=== PATIENT | male | born 1935 | race Caucasian/White ===

== ENCOUNTER → 2019-12-16 | Outpatient (CLI) | payer MEDICARE ==
--- NOTE | 2019-12-16 13:09 | XR ---
EXAMINATION TYPE: XR chest 2V DATE OF EXAM: 12/16/2019 COMPARISON: NONE HISTORY: Shortness of breath TECHNIQUE: Frontal and lateral views of the chest are obtained. FINDINGS: Scattered senescent parenchymal changes noted. Hyperinflation compatible with COPD. No evidence for infiltrate. No evidence for atelectasis. Scattered granulomas noted. Heart size is enlarged. Mediastinal structures are stable and grossly unremarkable. No evidence for hilar prominence. Degenerative changes dorsal spine. IMPRESSION: 1. No evidence for acute pulmonary disease.
== END | disposition home or self-care (01) ==
LOC: RADXRMAIN 12:48
PROVIDERS: ATTEND Family Medicine
DX: R05 Cough (principal)
CPT/HCPCS: 71046

== ENCOUNTER → 2020-03-12 | Outpatient (CLI) | payer MEDICARE ==
[2020-03-12 19:15] LABS: T4, Free (Free Thyroxine) 0.9 ng/dL (0.80-1.80)
[2020-03-12 20:08] LABS: Protein, Total 7.1 g/dL (6.2-8.2)
[2020-03-12 21:31] LABS: Hemoglobin A1C 6.3 % (4.0-6.0)
[2020-03-15 15:28] LABS: Albumin 3.82 g/dL (3.80-4.90); Gamma Globulin 1.19 g/dL (0.70-1.50)
== END | disposition home or self-care (01) ==
LOC: LABWHC1 11:50
PROVIDERS: ATTEND Psychiatry & Neurology Neurology
DX: R73.9 Hyperglycemia, unspecified (principal); G62.9 Polyneuropathy, unspecified
CPT/HCPCS: 36415; 82607; 83036; 84165; 84439; 84443; 85652; 86038; 86618

== ENCOUNTER → 2021-05-09 | Outpatient (CLI) | payer MEDICARE ==
[2021-05-09 22:07] LABS: Protein, Total 6.8 g/dL (6.2-8.2)
[2021-05-09 22:20] LABS: T4, Free (Free Thyroxine) 0.8 ng/dL (0.80-1.80)
== END | disposition home or self-care (01) ==
LOC: LABWHC1 10:53
PROVIDERS: ATTEND Psychiatry & Neurology Pain Medicine
DX: R20.0 Anesthesia of skin (principal); R20.2 Paresthesia of skin
CPT/HCPCS: 36415; 82607; 83519; 84165; 84439; 84443

== ENCOUNTER → 2021-05-10 | Outpatient (CLI) | payer MEDICARE ==
--- NOTE | 2021-05-10 18:35 | US ---
EXAMINATION TYPE: US kidneys/renal and bladder DATE OF EXAM: 05/10/2021 COMPARISON: None CLINICAL HISTORY: 85-year-old male N39.0 Urinary tract infection. TECHNIQUE: Multiple sonographic images of the kidneys and bladder are obtained. FINDINGS: EXAM MEASUREMENTS: Right Kidney: 10.3 x 5.4 x 4.8 cm Left Kidney: 10.7 x 5.1 x 4.8 cm Right Kidney: No hydronephrosis. There are multiple cysts: Superior = 1.8x 1.5 x 1.3 cm Superior = 2.2 x 1.9 x 1.5 cm Inferior = 2.7 x 2.2 x 1.9 cm Left Kidney: No hydronephrosis or masses seen. Multiple cysts. Largest =1.3 x 1.2 x 1.0 cm Lower pole . Other cysts are subcentimeter in size. No hydronephrosis. Bladder: Mild circumferential wall thickening. Prostate gland appears prominent. Bilateral Jets seen: Yes Normal Post Void Residual: Yes Post Void Residual Volume: 16.0 mL. IMPRESSION: 1. No hydronephrosis. 2. Bilateral benign renal cysts measuring up to 2.7 cm, right greater than left. 3. Mild circumferential bladder wall thickening. Given the prominent prostate gland, correlate for ch ronic bladder wall hypertrophy. 4. Increased post void bladder volume of 16.0 mL falls within acceptable limits (normal 50 mL).
== END | disposition home or self-care (01) ==
LOC: RADUSWWP 15:01
PROVIDERS: ATTEND Urology
DX: N28.1 Cyst of kidney, acquired (principal); N32.89 Other specified disorders of bladder
CPT/HCPCS: 76770

== ENCOUNTER 2021-07-08 14:18 | Inpatient (IN) | payer MEDICARE ==
--- NOTE | 2021-07-08 15:23 | ED ---
General Adult HPI - General Chief complaint: Recheck/Abnormal Lab/Rx Stated complaint: High Blood Pressure Time Seen by Provider: 07/08/21 15:07 Source: patient, RN notes reviewed Mode of arrival: ambulatory Limitations: no limitations - History of Present Illness Initial comments: 85-year-old male with a past medical history of hypertension presents to the emergency room for a chief complaint of hypertension. Patient states that last week he went to neurology and spine given his spinal tap done to evaluate for neuropathy and leg weakness. States that at that time the blood pressure was high. Patient states they've been monitoring at home and has continued to be high. States he used to be on blood pressure medication but has not taken this for the past 2 years because it seemed to resolve. Patient's only symptoms are feeling somewhat weak for the past week or so. No chest pain, syncope. Patient has no other complaints at this time including shortness of breath, chest pain, abdominal pain, nausea or vomiting, headache, or visual changes. - Related Data Home Medications Medication Instructions Recorded Confirmed Apixaban [Eliquis] 5 mg PO BID 07/08/21 07/08/21 Cholecalciferol [Vitamin D3 (25 25 mcg PO DAILY 07/08/21 07/08/21 Mcg = 1000 Iu)] DULoxetine HCL [Cymbalta] See Taper PO DIRECTED 07/08/21 07/08/21 gemfibroziL [Lopid] 600 mg PO BID 07/08/21 07/08/21 Allergies Allergy/AdvReac Type Severity Reaction Status Date / Time No Known Allergies Allergy Verified 07/08/21 17:14 Review of Systems ROS Statement: Those systems with pertinent positive or pertinent negative responses have been documented in the HPI. ROS Other: All systems not noted in ROS Statement are negative. Past Medical History Past Medical History: Hypertension Additional Past Medical History / Comment(s): Neuropathy History of Any Multi-Drug Resistant Organisms: ESBL Date of last positivie culture/infection: 04/01/21 MDRO Source:: ESBL URINE Past Surgical History: No Surgical Hx Reported Smoking Status: Never smoker Past Alcohol Use History: Occasional Past Drug Use History: None Reported General Exam Limitations: no limitations General appearance: alert, in no apparent distress Head exam: Present: atraumatic Eye exam: Present: normal appearance, PERRL, EOMI. Absent: scleral icterus, conjunctival injection ENT exam: Present: normal exam, mucous membranes moist Neck exam: Present: normal inspection, full ROM. Absent: tenderness Respiratory exam: Present: normal lung sounds bilaterally. Absent: respiratory distress, wheezes Cardiovascular Exam: Present: bradycardia GI/Abdominal exam: Present: soft, normal bowel sounds. Absent: distended, tenderness Neurological exam: Present: alert Course Vital Signs 07/08/21 07/08/21 07/08/21 14:41 15:20 16:00 Temperature 97.6 F Pulse Rate 76 34 L 36 L Respiratory 18 14 18 Rate Blood Pressure 205/80 196/99 182/104 O2 Sat by Pulse 99 100 Oximetry 07/08/21 07/08/21 16:01 16:30 Temperature Pulse Rate 37 L 41 L Respiratory 18 18 Rate Blood Pressure 194/102 191/89 O2 Sat by Pulse 100 100 Oximetry EKG Findings - EKG Comments: EKG Findings:: Atrial fibrillation with slow ventricular response, ventricular rate 31, QTc 387, QRS duration 104 Medical Decision Making - Medical Decision Making Patient presents for hypertension. He is hypertensive however is found to be bradycardic. Heart rate in the mid-30s down to 31 at the lowest. He is generally asymptomatic. Only complaint is some weakness for the past week or so. CBC is unremarkable. CMP does show some increased creatinine and BUN. Patient will be given fluids. Troponin is negative. Chest x-ray shows mild cardiomegaly with some increased patchy interstitial changes in the lower lungs. He does not have cough or fever to correlate with atypical pneumonia. I did speak with Dr. Cai. He requests 25 mg of by mouth hydralazine be given as this could be reflexive bradycardia. Patient will be admitted with cardiology consultation. - Lab Data Result diagrams: 07/08/21 15:27 07/08/21 15:27 Lab Results 07/08/21 07/08/21 07/08/21 Range/Units 15:27 15:27 15:27 WBC 6.0 (3.8-10.6) k/uL RBC 4.20 L (4.30-5.90) m/uL Hgb 14.1 (13.0-17.5) gm/dL Hct 40.1 (39.0-53.0) % MCV 95.5 (80.0-100.0) fL MCH 33.5 (25.0-35.0) pg MCHC 35.1 (31.0-37.0) g/dL RDW 14.5 (11.5-15.5) % Plt Count 161 (150-450) k/uL MPV 9.1 Neutrophils % 60 % Lymphocytes % 25 % Monocytes % 8 % Eosinophils % 4 % Basophils % 0 % Neutrophils # 3.6 (1.3-7.7) k/uL Lymphocytes # 1.5 (1.0-4.8) k/uL Monocytes # 0.5 (0-1.0) k/uL Eosinophils # 0.2 (0-0.7) k/uL Basophils # 0.0 (0-0.2) k/uL PT 11.3 (9.0-12.0) sec INR 1.1 (<1.2) APTT 25.5 (22.0-30.0) sec Sodium 141 (137-145) mmol/L Potassium 4.6 (3.5-5.1) mmol/L Chloride 109 H (98-107) mmol/L Carbon Dioxide 24 (22-30) mmol/L Anion Gap 8 mmol/L BUN 32 H (9-20) mg/dL Creatinine 1.71 H (0.66-1.25) mg/dL Est GFR (CKD-EPI)AfAm 42 (>60 ml/min/1.73 sqM) Est GFR (CKD-EPI)NonAf 36 (>60 ml/min/1.73 sqM) Glucose 113 H (74-99) mg/dL Calcium 9.0 (8.4-10.2) mg/dL Magnesium 2.1 (1.6-2.3) mg/dL Total Bilirubin 0.7 (0.2-1.3) mg/dL AST 29 (17-59) U/L ALT 16 (4-49) U/L Alkaline Phosphatase 71 (38-126) U/L Troponin I (0.000-0.034) ng/mL Total Protein 7.5 (6.3-8.2) g/dL Albumin 4.2 (3.5-5.0) g/dL 07/08/21 Range/Units 15:27 WBC (3.8-10.6) k/uL RBC (4.30-5.90) m/uL Hgb (13.0-17.5) gm/dL Hct (39.0-53.0) % MCV (80.0-100.0) fL MCH (25.0-35.0) pg MCHC (31.0-37.0) g/dL RDW (11.5-15.5) % Plt Count (150-450) k/uL MPV Neutrophils % % Lymphocytes % % Monocytes % % Eosinophils % % Basophils % % Neutrophils # (1.3-7.7) k/uL Lymphocytes # (1.0-4.8) k/uL Monocytes # (0-1.0) k/uL Eosinophils # (0-0.7) k/uL Basophils # (0-0.2) k/uL PT (9.0-12.0) sec INR (<1.2) APTT (22.0-30.0) sec Sodium (137-145) mmol/L Potassium (3.5-5.1) mmol/L Chloride (98-107) mmol/L Carbon Dioxide (22-30) mmol/L Anion Gap mmol/L BUN (9-20) mg/dL Creatinine (0.66-1.25) mg/dL Est GFR (CKD-EPI)AfAm (>60 ml/min/1.73 sqM) Est GFR (CKD-EPI)NonAf (>60 ml/min/1.73 sqM) Glucose (74-99) mg/dL Calcium (8.4-10.2) mg/dL Magnesium (1.6-2.3) mg/dL Total Bilirubin (0.2-1.3) mg/dL AST (17-59) U/L ALT (4-49) U/L Alkaline Phosphatase (38-126) U/L Troponin I <0.012 (0.000-0.034) ng/mL Total Protein (6.3-8.2) g/dL Albumin (3.5-5.0) g/dL Disposition Clinical Impression: Bradycardia, Acute kidney injury, Hypertension, Atrial fibrillation Disposition: ADMITTED IP TO THIS HOSP Is patient prescribed a controlled substance at d/c from ED?: No Referrals: Lizabeth Herrera MD [Primary Care Provider] - 1-2 days Time of Disposition: 17:40
[2021-07-08 15:39] LABS: Basophils % (A) 0 %; Eosinophils # (A) 0.2 k/uL (0-0.7); Eosinophils % (A) 4 %; HCT 40.1 % (39.0-53.0); HGB 14.1 gm/dL (13.0-17.5); Lymphocytes # (A) 1.5 k/uL (1.0-4.8); Lymphocytes % (A) 25 %; MCH 33.5 pg (25.0-35.0); MCHC 35.1 g/dL (31.0-37.0); MCV 95.5 fL (80.0-100.0); Mean Platelet Volume 9.1; Monocytes # (A) 0.5 k/uL (0-1.0); Monocytes % (A) 8 %; Neutrophils # (A) 3.6 k/uL (1.3-7.7); Neutrophils % (A) 60 %; Platelet Count 161 k/uL (150-450); RDW 14.5 % (11.5-15.5)
[2021-07-08 15:48] LABS: INR 1.1 (<1.2)
[2021-07-08 15:49] LABS: Partial Thromboplastin Time 25.5 sec (22.0-30.0); Prothrombin Time 11.3 sec (9.0-12.0)
--- NOTE | 2021-07-08 15:51 | XR ---
EXAMINATION TYPE: XR chest 2V DATE OF EXAM: 07/08/2021 COMPARISON: 12/16/2019 HISTORY: 85-year-old male with chest pain, status post open heart surgery 6 months ago. TECHNIQUE: PA and lateral views FINDINGS: Median sternotomy wires are present with postsurgical clips mediastinum. Heart is mildly enlarged. Mi ld patchy interstitial densities are increased in the lower lungs. Suspect underlying calcified granu darren such as in the periphery of the right lower lung. No pleural effusion. IMPRESSION: Mild cardiomegaly. Some increased patchy interstitial changes in the lower lungs. Consider bronchitis or areas of strandy atelectasis. Correlate to exclude atypical pneumonia.
[2021-07-08 16:00] LABS: Albumin 4.2 g/dL (3.5-5.0); Magnesium 2.1 mg/dL (1.6-2.3); Potassium 4.6 mmol/L (3.5-5.1); Total Bilirubin 0.7 mg/dL (0.2-1.3); Total Protein 7.5 g/dL (6.3-8.2)
[2021-07-08] MEDS ORDERED: hydrALAZINE HCL 25 MG TAB PO STA (17:23)
[2021-07-08] MEDS ORDERED: NITROGLYCERIN SL TABS 0.4 MG TAB SUBLINGUAL PRN (17:41)
[2021-07-08] MEDS ORDERED: NALOXONE 0.4 MG/ML 1 ML VIAL IV PRN (19:02)
[2021-07-08] MEDS ORDERED: ACETAMINOPHEN TAB 325 MG TAB PO PRN (19:02)
[2021-07-08] MEDS ORDERED: MELATONIN 3 MG TABLET PO PRN (19:02)
[2021-07-08] MEDS ORDERED: IBUPROFEN 400 MG TAB PO PRN (19:02)
--- NOTE | 2021-07-08 19:06 | P.HPIM ---
History of Present Illness H&P Date: 07/08/21 Chief Complaint: high blood pressure Patient is an 85-year-old male to past medical history of hypertension neuropathy, presented to the ER with complaints of high blood pressure. On arrival to the ER he was noted to have a blood pressure of 205/80. He was then noted to have a heart rate in the 30s. Laboratory analysis showed an elevated creatinine at 1.71 for patient's baseline of 1.4. Patient's troponin was normal. EKG demonstrated atrial fibrillation with slow ventricular response. Patient seen and examined at bedside in the ER. BP was high on Sunday when went into the neurologist. Today went to urgent care in [place] who directed him to the emergency department. Increased weakness and decreased coordination. Not light headed or dizziness with ambulation. No chest pain or shortness of breath. No headaches. Has been following with neurology due to neuropathy in feet for the last few years and has been undergoing testing. He had a spinal tap 1 week ago. He started Cymbalta on Sunday, after BP was elevated in the neurology office. Was on blood pressure medications for years, and then 2 years ago BP was low and was subsequently taken off all medications. Has been on Xarelto for A fib. He follows with Dr. Beavers and has been seen with in the last 6 months. Pertinent positives and negatives as discussed in HPI, a complete review of systems was performed and all other systems are negative. General: non toxic, no distress, appears at stated age Derm: warm, dry Head: atraumatic, normocephalic, symmetric Eyes: EOMI, no lid lag, anicteric sclera, pupils equal round reactive to light ENT: Nose and ears atraumatic, no thrush, no pharyngeal erythema Neck: No thyromegaly, no cervical lymphadenopathy, trachea midline, supple Mouth: no lip lesion, mucus membranes moist Cardiovascular: S1S2 reg, no murmur, positive posterior tibial pulse bilateral, no edema, capillary refill less than 2 seconds Lungs: clear to ascultation bilateral, no ronchi, no rales, no wheeze, no accessory muscle use Abdominal: soft, nontender to palpation, no guarding, no appreciable organomegaly, normal bowel sounds Ext: no gross muscle atrophy, muscle strength muscle strength 5 out of 5 in all 4 extremities, no contractures Neuro: CN II-XI grossly intact, light touch intact all 4 extremities, finger to nose within normal limits, Psych: Alert, oriented, appropriate affect Symptomatic bradycardia with underlying atrial fibrillation Accelerated hypertension - hydralazine prn - keep blood pressure less than 200, but do not drop dramatically as it may be compensatory to ensure perfusion -Telemetry -Cardiology consultation -Echocardiogram -Trend troponin -Hold Xarelto-patient is not on any rate controlling medications - hold cymbatla as it can increase BP Dyslipidemia -Continue with Lopid Neuropathy -Continue outpatient workup The patient is admitted with an anticipated greater than 2 midnight stay for evaluation of symptomatic bradycardia Surrogate decision-maker: CODE STATUS:full DVT prophylaxis: scds Discussed with: patient, nursing Anticipated discharge date: 3-[address]: home A total of 65 minutes was spent on the care of this complex patient more than 50% of the time was spent in counseling and care coordination. 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, bilateral knee replacements, hernia repairs Smoking Status: Never smoker Past Alcohol Use History: Occasional Past Drug Use History: None Reported Additional History: no cane or walker - Past Family History Mother Additional Family Medical History / Comment(s): no family hx of heart problems Medications and Allergies Home Medications Medication Instructions Recorded Confirmed Type Apixaban [Eliquis] 5 mg PO BID 07/08/21 07/08/21 History Cholecalciferol [Vitamin D3 (25 25 mcg PO DAILY 07/08/21 07/08/21 History Mcg = 1000 Iu)] DULoxetine HCL [Cymbalta] See Taper PO DIRECTED 07/08/21 07/08/21 History gemfibroziL [Lopid] 600 mg PO BID 07/08/21 07/08/21 History Allergies Allergy/AdvReac Type Severity Reaction Status Date / Time No Known Allergies Allergy Verified 07/08/21 17:14 Physical Exam Osteopathic Statement: *. No significant issues noted on an osteopathic structural exam other than those noted in the History and Physical/Consult. Vitals: Vital Signs Temp Pulse Resp BP Pulse Ox 07/08/21 16:30 41 L 18 191/89 100 07/08/21 16:01 37 L 18 194/102 100 07/08/21 16:00 36 L 18 182/104 100 07/08/21 15:20 34 L 14 196/99 07/08/21 14:41 97.6 F 76 18 205/80 99 Intake and Output 07/08/21 07/08/21 07/08/21 06:59 14:59 22:59 Other: Weight 88.451 kg Results CBC & Chem 7: 07/08/21 15:27 07/08/21 15:27 Labs: Abnormal Lab Results - Last 24 Hours (Table) 07/08/21 07/08/21 Range/Units 15:27 15:27 RBC 4.20 L (4.30-5.90) m/uL Chloride 109 H (98-107) mmol/L BUN 32 H (9-20) mg/dL Creatinine 1.71 H (0.66-1.25) mg/dL Glucose 113 H (74-99) mg/dL
[2021-07-08] MEDS ORDERED: APIXABAN 5 MG TAB PO SCH (21:00)
--- NOTE | 2021-07-09 00:47 | P.PN ---
Progress Note - Text Progress Note Date: 07/08/21 patient noted to have asymptomatic episodes of significant bradycardia down to mid 30s , associated with occasional pauses of longer than 2.5 seconds again asymptomatic EKG reviewed 'paged cardiology at [id number] and again at [id number] await call back to further discuss recommendations and possible transfer to ICU ICU team aware , await cardiology recommendations patient currently stable and asymptomatic
[2021-07-09] MEDS: amLODIPine 5 MG TAB PO SCH (08:23)
[2021-07-09] MEDS: CHOLECALCIFEROL 25 MCG (1000 IU) TABLET PO SCH (08:23)
[2021-07-09 09:36] LABS: HCT 35.1 % (39.0-53.0); HGB 12.7 gm/dL (13.0-17.5); MCH 33.8 pg (25.0-35.0); MCHC 36.1 g/dL (31.0-37.0); MCV 93.6 fL (80.0-100.0); Mean Platelet Volume 9.3; Platelet Count 138 k/uL (150-450); RBC 3.75 m/uL (4.30-5.90); WBC 5.2 k/uL (3.8-10.6)
[2021-07-09 09:56] LABS: ALT 16 U/L (4-49); AST 29 U/L (17-59); African American GFR (CKD) 53 (>60 ml/min/1.73 sqM); Albumin 3.7 g/dL (3.5-5.0); Alkaline Phosphatase 69 U/L (38-126); Anion Gap 8 mmol/L; Blood Urea Nitrogen 27 mg/dL (9-20); Calcium 8.9 mg/dL (8.4-10.2); Carbon Dioxide 25 mmol/L (22-30); Chloride 107 mmol/L (98-107); Glucose 104 mg/dL (74-99); Non-African American GFR(CKD) 46 (>60 ml/min/1.73 sqM); Potassium 4.3 mmol/L (3.5-5.1); Sodium 140 mmol/L (137-145); Total Bilirubin 0.8 mg/dL (0.2-1.3); Total Protein 6.9 g/dL (6.3-8.2)
--- NOTE | 2021-07-09 11:20 | P.CRDCN ---
History of Present Illness Consult date: 07/09/21 Reason for Consult (text): Bradycardia, hypertension, A. fib Chief complaint: Severely elevated blood pressure History of present illness: This is Julio Hazel NP dictating a consult on this patient on behalf of Dr. Ray vaughn. The patient was interviewed and examined. HPI: [Patient's pleasant 85-year-old male who initially presented to the hospital after discovering of severely elevated blood pressure. Patient has a past history of hypertension, however has been off medication for the last 2 years because it appeared to improve. Patient reported no symptoms of chest pain, dizziness, syncope, falls, headache, or blurred vision. Patient reports he went to his neurologist last week and discovered his blood pressure was significantly elevated. He was advised to continue to monitor, the patient states that he continue to monitor it continued to be elevated. This prompted him to come into the emergency department. Workup in the emergency department was fairly benign, however the patient was discovered to be in atrial fibrillation with slow ventricular response with a heart rate in the 30s. Patient's troponin was negative. Patient does have a past history of atrial fibrillation, and has been on Eliquis.] ROS: [No fever, chills, or rigors] [no cough, phlegm, or expectoration] [no nausea, vomiting, or diarrhea] [no hematuria, dysuria] [no musculoskelatal complaints] [no strokes or seizures, patient does report numbness in the bottom of his feet, and lower back pain] [no skin lesions] EXAMINATION: GENERAL: Well-appearing, well-nourished and in no acute distress. NECK: Supple without JVD or thyromegaly. LUNGS: Breath sounds clear to auscultation bilaterally. Respiration equal and unlabored. No wheezes, rales or rhonchi. HEART: Slow rate and irregular rhythm without murmurs, rubs or gallops. S1 and S2 heard. EXTREMITIES: Normal range of motion, no edema. No clubbing or cyanosis. P eripheral pulses intact and strong. REVIEW OF LABS, ECG & MEDICAL DATA: LABS: White count 5.2, hemoglobin 12.7, platelets 138, PT 11.3, INR 1.1, sodium 140, potassium 4.3, B1 27, creatinine 1.41, calcium 8.9, serial troponins 3 less than 0.012, TSH 1.47 EKG: Atrial fibrillation with slow ventricular response IMAGING: Chest x-ray dated 07/08/2021 shows mild cardiomegaly, with some increased patchy interstitial changes to the lower lungs. VITALS: Temp is 98.2, pulse 30, respirations 16, blood pressure 126/80, O2 saturation 96% on room air. IMPRESSION/PLAN: 1. Atrial fibrillation with slow ventricular response-patient eliquis was stopped possible procedure. We'll start the patient on Lovenox 80 mg twice a day today, however stopped tomorrow for anticipation of pacemaker implantation o n Sunday. Continue amlodipine as ordered. Echocardiogram to be completed. 2. Watch patient's hypertension, as he has a history of stopping medications 2 years ago for low blood pressure. 3. Patient being worked up for lower extremity neurological condition. Thank you for the consult and allowing us to participate in the care of this patient. 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, bilateral knee replacements, hernia repairs Past Anesthesia/Blood Transfusion Reactions: No Reported Reaction Past Psychological History: No Psychological Hx Reported Smoking Status: Never smoker Past Alcohol Use History: Occasional Past Drug Use History: None Reported - Past Family History Mother Additional Family Medical History / Comment(s): no family hx of heart problems Medications and Allergies Home Medications Medication Instructions Recorded Confirmed Type Apixaban [Eliquis] 5 mg PO BID 07/08/21 07/08/21 History Cholecalciferol [Vitamin D3 (25 25 mcg PO DAILY 07/08/21 07/08/21 History Mcg = 1000 Iu)] DULoxetine HCL [Cymbalta] See Taper PO DIRECTED 07/08/21 07/08/21 History gemfibroziL [Lopid] 600 mg PO BID 07/08/21 07/08/21 History Allergies Allergy/AdvReac Type Severity Reaction Status Date / Time No Known Allergies Allergy Verified 07/08/21 17:14 Physical Exam Vitals: Vital Signs Temp Pulse Pulse Resp BP BP Pulse Ox 07/09/21 08:20 98.2 F 30 L 16 126/80 96 07/09/21 04:00 97.3 F L 44 L 16 131/71 98 07/09/21 02:00 46 L 16 07/09/21 00:00 97.9 F 40 L 18 164/79 99 07/08/21 22:00 47 L 6 L 180/102 07/08/21 21:30 44 L 18 180/102 97 07/08/21 20:00 98.0 F 35 L 17 189/98 100 07/08/21 19:30 67 17 178/93 07/08/21 19:00 48 L 18 189/107 100 07/08/21 18:30 54 L 16 190/98 99 07/08/21 18:00 55 L 16 128/100 100 07/08/21 17:30 49 L 18 175/147 94 L 07/08/21 17:00 16 196/91 99 07/08/21 16:30 41 L 18 191/89 100 07/08/21 16:01 37 L 18 194/102 100 07/08/21 16:00 36 L 18 182/104 100 07/08/21 15:20 34 L 14 196/99 07/08/21 14:41 97.6 F 76 18 205/80 99 Intake and Output 07/08/21 07/09/21 07/09/21 22:59 06:59 14:59 Output Total 275 175 Balance -275 -175 Output: Urine 275 175 Other: # Voids 1 Weight 88.451 kg 88.4 kg Results 07/09/21 09:14 07/09/21 09:14 Cardiac Enzymes 07/08/21 07/08/21 07/08/21 Range/Units 15:27 15:27 18:58 AST 29 (17-59) U/L Troponin I <0.012 <0.012 (0.000-0.034) ng/mL 07/08/21 07/09/21 Range/Units 22:40 09:14 AST 29 (17-59) U/L Troponin I <0.012 (0.000-0.034) ng/mL Coagulation 07/08/21 Range/Units 15:27 PT 11.3 (9.0-12.0) sec APTT 25.5 (22.0-30.0) sec CBC 07/08/21 07/09/21 Range/Units 15: 09:14 WBC 6.0 5.2 (3.8-10.6) k/uL RBC 4.20 L 3.75 L (4.30-5.90) m/uL Hgb 14.1 12.7 L (13.0-17.5) gm/dL Hct 40.1 35.1 L (39.0-53.0) % Plt Count 161 138 L (150-450) k/uL Comprehensive Metabolic Panel 07/08/21 07/09/21 Range/Units 15: 09:14 Sodium 141 140 (137-145) mmol/L Potassium 4.6 4.3 (3.5-5.1) mmol/L Chloride 109 H 107 (98-107) mmol/L Carbon Dioxide 24 25 (22-30) mmol/L BUN 32 H 27 H (9-20) mg/dL Creatinine 1.71 H 1.41 H (0.66-1.25) mg/dL Glucose 113 H 104 H (74-99) mg/dL Calcium 9.0 8.9 (8.4-10.2) mg/dL AST 29 29 (17-59) U/L ALT 16 16 (4-49) U/L Alkaline Phosphatase 71 69 (38-126) U/L Total Protein 7.5 6.9 (6.3-8.2) g/dL Albumin 4.2 3.7 (3.5-5.0) g/dL Current Medications Generic Name Dose Route Start Last Admin Trade Name Freq PRN Reason Stop Dose Admin Acetaminophen 650 mg 07/08/21 19:02 Acetaminophen Tab 325 Mg Tab PO Q6HR PRN Mild Pain or Fever > 100.5 Amlodipine Besylate 5 mg 07/09/21 09:00 07/09/21 08:23 Amlodipine 5 Mg Tab PO 5 mg DAILY WILMAN Administration Cholecalciferol 25 mcg 07/09/21 09:00 07/09/21 08:23 Cholecalciferol 25 Mcg (1000 Iu) Tablet PO 25 mcg DAILY WILMAN Administration Ibuprofen 400 mg 07/08/21 19:02 Ibuprofen 400 Mg Tab PO Q6HR PRN Mild Pain or Fever > 100.5 Melatonin 3 mg 07/08/21 19:02 Melatonin 3 Mg Tablet PO HS PRN Insomnia Naloxone HCl 0.2 mg 07/08/21 19:02 Naloxone 0.4 Mg/Ml 1 Ml Vial IV Q2M PRN Opioid Reversal Nitroglycerin 0.4 mg 07/08/21 17:41 Nitroglycerin Sl Tabs 0.4 Mg Tab SUBLINGUAL Q5M PRN Chest Pain Intake and Output 07/08/21 07/09/21 07/09/21 22:59 06:59 14:59 Output Total 275 175 Balance -275 -175 Output: Urine 275 175 Other: # Voids 1 Weight 88.451 kg 88.4 kg 07/09/21 09:14 07/09/21 09:14
--- NOTE | 2021-07-09 11:40 | ECHOF ---
Referral Reason:Bradycardia MEASUREMENTS -------- HEIGHT: 157.5 cm WEIGHT: 88.0 kg BP: RVIDd: 4.7 cm (< 3.3) IVSd: 1.3 cm (0.6 - 1.1) LVIDd: 5.4 cm (3.9 - 5.3) LVPWd: 1.9 cm (0.6 - 1.1) IVSs: 1.8 cm LVIDs: 3.1 cm LVPWs: 1.7 cm LAESV Index (A-L): 70.50 ml/m Ao Diam: 3.3 cm (2.0 - 3.7) AV Cusp: 1.6 cm (1.5 - 2.6) LA Diam: 6.8 cm (2.7 - 3.8) MV EXCURSION: 21.475 mm (> 18.000) MV EF SLOPE: 121 mm/s (70 - 150) EPSS: 0.7 cm MV E Balaji: 0.82 m/s MV DecT: 127 ms MV A Balaji: 0.31 m/s MV E/A Ratio: 2.67 RAP: 5.00 mmHg RVSP: 53.86 mmHg FINDINGS -------- Undetermined rhythm. This was a technically good study. The left ventricular size is normal. Left ventricular wall thickness is normal. Overall left vent ricular systolic function is low-normal with, an EF between 50 - 55 %. The right ventricle is severely enlarged. LA is severely dilated >40 ml/m2 The right atrial size is normal. The aortic valve is trileaflet, and appears structurally normal. No aortic stenosis or regurgitation. Zxdt-tu-xcdkmbjv mitral regurgitation is present. Moderate tricuspid regurgitation present. There is moderate pulmonary hypertension. The right gilda tricular systolic pressure, as measured by Doppler, is 53.86mmHg. Trace/mild (physiologic) pulmonic regurgitation. There is no pericardial effusion. CONCLUSIONS -------- 1. The left ventricular size is normal. 2. Left ventricular wall thickness is normal. 3. Overall left ventricular systolic function is low-normal with, an EF between 50 - 55 %. 4. The right ventricle is severely enlarged. 5. LA is severely dilated >40 ml/m2 6. The right atrial size is normal. 7. The aortic valve is trileaflet, and appears structurally normal. No aortic stenosis or regurgitati on. 8. Kxim-du-uoaihozq mitral regurgitation is present. 9. Moderate tricuspid regurgitation present. 10. There is moderate pulmonary hypertension. 11. The right ventricular systolic pressure, as measured by Doppler, is 53.86mmHg. 12. Trace/mild (physiologic) pulmonic regurgitation. 13. There is no pericardial effusion. TIME CLOCK INSPECTOR: Nancy Adame RDCS
[2021-07-09] MEDS: ENOXAPARIN 80 MG/0.8 ML SYRINGE SQ SCH ×2 (12:25→19:50)
--- NOTE | 2021-07-09 15:03 | P.PN ---
Subjective Progress Note Date: 07/09/21 (Delayed charting seen at 1130) Principal diagnosis: fatigue Patient is an 85-year-old male to past medical history of hypertension neuropathy, presented to the ER with complaints of high blood pressure. On arrival to the ER he was noted to have a blood pressure of 205/80. He was then noted to have a heart rate in the 30s. Laboratory analysis showed an elevated creatinine at 1.71 for patient's baseline of 1.4. Patient's troponin was normal. EKG demonstrated atrial fibrillation with slow ventricular response. He is admitted for further monitoring. He was given a dose of hydralazine which improved his blood pressure. He was seen by cardiology and plans are for permanent pacemaker implantation. Patient seen and examined at bedside. He denies any chest pain, shortness of breath, lightheadedness. His thinks he was complaining of some lightheade dness last night. We had a very prolonged conversation about the difference. Pacemaker and AICD as well as indications for both. Patient is unsure he would want a pacemaker. He received low 25 years without it. We discussed that it is a bad idea not to have a pacemaker implanted that prolonged pauses can cause complications such as syncope and even lead to . General: non toxic, no distress, appears at stated age Derm: warm, dry Head: atraumatic, normocephalic, symmetric Eyes: EOMI, no lid lag, anicteric sclera Mouth: no lip lesion, mucus membranes moist Cardiovascular: S1S2 reg, no murmur, positive posterior tibial pulse bilateral, Lungs: CTA bilateral, no rhonchi, no rales , no accessory muscle use Abdominal: soft, nontender to palpation, no guarding, no appreciable organome love Ext: no gross muscle atrophy, no edema, no contractures Neuro: CN II-XI grossly intact, no focal neuro deficits Psych: Alert, oriented, appropriate affect Junctional rhythm with underlying A. fib Accelerated hypertension -Started on Norvasc by cardiology -Telemetry -Cardiology recommendations appreciated likely permanent pacemaker on Sunday -Echocardiogram with EF 50-55%, moderate tricuspid regurgitation, and moderate pulmonary hypertension with RVSP 53.86. He also was found have a severely dilated left atrium. -Hold Xarelto-patient is not on any rate controlling medications - hold cymbatla as it can increase BP Dyslipidemia -Continue with Lopid Neuropathy -Continue outpatient workup DVT prophylaxis: Lovenox Discussed with: patient, nursing Anticipated discharge date: 3-[address]: home A total of 42 minutes was spent on the care of this complex patient more than 50% of the time was spent in counseling and care coordination. Objective - Vital Signs Vital signs: Vital Signs Temp 99.5 F 07/09/21 12:20 Pulse 55 L 07/09/21 12:20 Resp 16 07/09/21 12:20 BP 169/88 07/09/21 12:20 Pulse Ox 100 07/09/21 12:20 Intake & Output 07/08/21 07/09/21 07/09/21 18:59 06:59 18:59 Output Total 275 175 Balance -275 -175 Weight 88.451 kg 88.4 kg Output: Urine 275 175 Other: # Voids 1 - Labs CBC & Chem 7: 07/09/21 09:14 07/09/21 09:14 Labs: Abnormal Lab Results - Last 24 Hours (Table) 07/08/21 07/08/21 07/09/21 Range/Units 15:27 15:27 09:14 RBC 4.20 L (4.30-5.90) m/uL Hgb (13.0-17.5) gm/dL Hct (39.0-53.0) % Plt Count (150-450) k/uL Chloride 109 H (98-107) mmol/L BUN 32 H 27 H (9-20) mg/dL Creatinine 1.71 H 1.41 H (0.66-1.25) mg/dL Glucose 113 H 104 H (74-99) mg/dL 07/09/21 Range/Units 09:14 RBC 3.75 L (4.30-5.90) m/uL Hgb 12.7 L (13.0-17.5) gm/dL Hct 35.1 L (39.0-53.0) % Plt Count 138 L (150-450) k/uL Chloride (98-107) mmol/L BUN (9-20) mg/dL Creatinine (0.66-1.25) mg/dL Glucose (74-99) mg/dL
[2021-07-09 18:11] LABS: Chol/HDL Ratio 4.06 Ratio; LDL Cholesterol,Calculated 102.9 mg/dL (0.0-131.0)
[2021-07-10] MEDS: CHOLECALCIFEROL 25 MCG (1000 IU) TABLET PO SCH (08:33)
[2021-07-10] MEDS: amLODIPine 5 MG TAB PO SCH (08:33)
--- NOTE | 2021-07-10 11:58 | P.PN ---
Subjective Patient is resting comfortably in bed. No chest discomfort dizziness lightheadedness He has no symptoms no syncope no presyncope He goes to the bathroom he has no problems at all On examination his heart rate 7 the 40s On telemetry his heart is to down even below 30 beats a minute but is completely symptomatic Breath sounds are clear no rhonchi no crackles Heart sounds S1 and S2 are irregular but normal Abdomen soft Extremities are warm Impression Hypertension him a well-controlled on amlodipine 5 mg by mouth daily Remains in atrial fibrillation with a very slow ventricular response, not on any AV node blocking drugs and with a normal TSH Suggest I already discussed this with the patient His came into the room and I spoke to her about it We will proceed with a: Pacemaker tomorrow with Dr. Beavers, who is his primary illuminating engineer I scheduled the procedure for tomorrow and sent Dr. Beavers a message Thereafter anticoagulation can be resumed ELIQUIS has been on hold On Sunday we treated with Lovenox No Lovenox for Sunday or Sunday morning Objective - Vital Signs Vital signs: Vital Signs Temp 97.6 F 07/10/21 08:30 Pulse 37 L 07/10/21 08:30 Resp 18 07/10/21 08:30 BP 153/69 07/10/21 08:30 Pulse Ox 100 07/10/21 08:30 Intake & Output 07/09/21 07/10/21 07/10/21 18:59 06:59 18:59 Intake Total 236 118 Output Total 175 Balance 61 118 Weight 87.9 kg Intake: Oral 236 118 Output: Urine 175 Other: # Voids 1 1 1 - Labs CBC & Chem 7: 07/09/21 09:14 07/09/21 09:14
[2021-07-10] MEDS ORDERED: SODIUM CHLORIDE 0.9% 1,000 ML IV SCH ×3 (12:00)
[2021-07-10] MEDS ORDERED: amLODIPine 5 MG TAB PO STA (13:03)
[2021-07-10] MEDS: SODIUM CHLORIDE 0.9% 1,000 ML IV SCH (15:45)
--- NOTE | 2021-07-10 18:20 | P.PN ---
Subjective Progress Note Date: 07/10/21 (delayed charting seen at 1400) Principal diagnosis: fatigue Patient is an 85-year-old male to past medical history of hypertension neuropathy, presented to the ER with complaints of high blood pressure. On arrival to the ER he was noted to have a blood pressure of 205/80. He was then noted to have a heart rate in the 30s. Laboratory analysis showed an elevated creatinine at 1.71 for patient's baseline of 1.4. Patient's troponin was normal. EKG demonstrated atrial fibrillation with slow ventricular response. He is admitted for further monitoring. He was given a dose of hydralazine which improved his blood pressure. He was seen by cardiology and plans are for permanent pacemaker implantation. Patient seen and examined at bedside. Doing well, no complaints, no lightheaded/dizzy, no chest pain, no shortness of breath. He is now agreeable to PPM. General: non toxic, no distress, appears at stated age Derm: warm, dry Head: atraumatic, normocephalic, symmetric Eyes: EOMI, no lid lag, anicteric sclera Mouth: no lip lesion, mucus membranes moist Cardiovascular: S1S2 reg, no murmur, positive posterior tibial pulse bilateral, Lungs: CTA bilateral, no rhonchi, no rales , no accessory muscle use Abdominal: soft, nontender to palpation, no guarding, no appreciable organomegaly Ext: no gross muscle atrophy, no edema, no contractures Neuro: CN II-XI grossly intact, no focal neuro deficits Psych: Alert, oriented, appropriate affect Junctional rhythm with underlying A. fib Accelerated hypertension -Started on Norvasc by cardiology -Telemetry -Cardiology recommendations appreciated likely permanent pacemaker on Sunday -Echocardiogram with EF 50-55%, moderate tricuspid regurgitation, and moderate pulmonary hypertension with RVSP 53.86. He also was found have a severely dilated left atrium. -Hold Xarelto-patient is not on any rate controlling medications - hold cymbatla as it can increase BP Dyslipidemia -Continue with Lopid Neuropathy -Continue outpatient workup DVT prophylaxis: Lovenox Discussed with: patient, nursing Anticipated discharge date: 3-[address]: home A total of 35 minutes was spent on the care of this complex patient more than 50% of the time was spent in counseling and care coordination. Objective - Vital Signs Vital signs: Vital Signs Temp 97.7 F 07/10/21 13:00 Pulse 53 L 07/10/21 15:57 Resp 16 07/10/21 15:57 BP 170/75 07/10/21 15:57 Pulse Ox 99 07/10/21 15:57 Intake & Output 07/09/21 07/10/21 07/10/21 18:59 06:59 18:59 Intake Total 236 1676 Output Total 175 Balance 61 1676 Weight 87.9 kg Intake: Oral 236 1676 Output: Urine 175 Other: # Voids 1 1 3 - Labs CBC & Chem 7: 07/09/21 09:14 07/09/21 09:14
[2021-07-11] MEDS ORDERED: ceFAZolin 1 GM in SODIUM CHLORIDE 0.9% 250 ML IRRIGATION PRN (07:00)
[2021-07-11] MEDS ORDERED: IOPAMIDOL-370 50ML BTL INJ ONE ×3 (07:29→07:31)
[2021-07-11] MEDS ORDERED: IV FLUID CONTINUATION 300 ML IV ONE (07:32)
[2021-07-11] MEDS ORDERED: LIDOCAINE 1% INJ 10MG/ML (20 ML MDV) ONE (07:37)
[2021-07-11] MEDS ORDERED: fentaNYL (PF) 50 MCG/ML 2 ML AMP IV ONE (08:32)
[2021-07-11] MEDS ORDERED: MIDAZOLAM 2 MG/2 ML VIAL IV ONE (08:32)
[2021-07-11] MEDS ORDERED: LIDOCAINE 1% INJ 10MG/ML (20 ML MDV) SQ ONE (08:36)
--- NOTE | 2021-07-11 09:23 | P.PCN ---
Date of Procedure: 07/11/21 Preoperative Diagnosis: Sick sinus syndrome, atrial fibrillation and severe bradycardia Postoperative Diagnosis: The same Procedure(s) Performed: Single-chamber permanent pacemaker implantation, axillary venography Description of Procedure: HISTORY: This is a 85-year-old gentleman was admitted to the hospital with uncontrolled hypertension and severe bradycardia. Patient was in atrial fibrillation with slow ventricular response with heart rates in the 30s. Patient is advised to have permanent pacemaker implantation. CONSENT:I have discussed the risks, benefits and alternative therapies for the above-mentioned procedure and for both sedation/analgesia as well as necessary blood product administration, if indicated, as they pertain to this patient. The patient has indicated understanding and acceptance of the risks and procedures discussed. PROCEDURE: Patient was brought to the lab in a fasting state. Patient was prepped and draped in the usual fashion. Patient was given IV sedation with fentanyl and Versed. The skin below the left clavicle was infiltrated with lidocaine. An incision was made parallel to deltopectoral groove was deepened until the pectoral fascia was exposed. A pocket was created by blunt dissection and cautery. Axillary venography was performed to delineate the course of the axillary vein. A single venous stick was performed into extrathoracic portion of the axillary vein and a single 6-Georgian sheath were advanced over the guidewires and left in subclavian vein. Conscious Sedation: Versed 0.5 mg Fentanyl 25 g Duration 37minutes LEADS: VENTRICULAR: This is manufactured by [employer]. Model number is [id number] and the serial number is [id number]. New The device: This is manufactured by [employer] . The model number is 1272 [Assurity MRI] the serial number is [id number] The ventricular lead is maneuvered l with help of a straight and curved stylets into the left ventricle apical region. Satisfactory position was obtained and threshold measurements were made. The atrial lead was then maneuvered into the right atrial appendage. And thresholds were obtained. THRESHOLDS: VENTRICLE: The minimal patient threshold is 0.5 V at a pulse width of 0.5 ms. The impedance is 790 R-wave:5.7 The leads and pulse generator remained in the pocket after it was washed with antibiotics. Pocket was closed in the usual fashion. The fascia was closed with 2-0 Prolene ,the subcutaneous tissue was closed with 3-0 Prolene and the skin was closed with 4-0 Prolene. PROGRAMMING: MODE: VVIR RATE: 60 to110 OUTPUT: Ventricle: 3.5 FINAL IMPRESSION: #1. Axillary venography #2. Single-chamber permanent pacemaker implantation COMPLICATIONS: . None PLAN: Patient will monitored on the telemetry unit. Prophylactic antibiotic be continued. Chest x-ray in the morning. If chest x-ray shows proper lead position and if thresholds are stable, patient will be discharged home tomorrow.
[2021-07-11] MEDS: amLODIPine 10 MG TAB PO SCH (09:49)
[2021-07-11] MEDS: CHOLECALCIFEROL 25 MCG (1000 IU) TABLET PO SCH (09:49)
[2021-07-11] MEDS: SODIUM CHLORIDE 0.9% 1,000 ML IV SCH (10:23)
--- NOTE | 2021-07-11 13:58 | P.PN ---
<Nilo Mendez - Last Filed: 07/11/21 13:43> Subjective Progress Note Date: 07/11/21 Hospital Course: Patient is a pleasant 85-year-old male with a past medical history including hy pertension and neuropathy. He presented to the emergency department on 07/08/21 with a chief complaint of high blood pressure. Upon arrival to the emergency department patient was noted to have a hypertensive urgency with blood pressure of 205/80 and significantly bradycardic with heart rate in the 30s. EKG was completed revealing atrial fibrillation with a slow ventricular response of 31 bpm. Patient was admitted under our services with consultation to cardiology. Patient was given dose of hydralazine and started on amlodipine with blood pressure stabilizing. Troponins trended 3 all negative at < 0.012. Lipid profile unremarkable. TSH normal findings at 1.470. Echocardiogram completed showing a normal EF of 50-55% with a severely dilated left atrium moderate mitral and tricuspid regurgitation, and moderate pulmonary hypertension. Patient underwent pacemaker placement this morning. Physical Examination: Patient seen and examined at bedside this morning. Patient was just returning from pacemaker placement. Dressing to left anterior chest in place in left arm in sling. Patient reports mild burning to incision site otherwise denies having any complaints at this time. Neurovascular checks to left hand intact. Patient denies having any headache, lightheadedness, dizziness, chest pain, palpitations, shortness of breath, or experiencing any numbness/tingling/weakness in his extremities. Morning labs reviewed revealing mild normocytic normochromic anemia with hemoglobin of 12.7, mild thrombocytopenia with platelet count of 138, and slight improvement in renal function with BUN of 27, creatinine 1.41, and GFR 46. General: non toxic, no distress, appears at stated age Derm: warm, dry Head: atraumatic, normocephalic, symmetric Eyes: EOMI, no lid lag, anicteric sclera Mouth: no lip lesion, mucus membranes moist Cardiovascular: S1S2 reg, no murmur, positive posterior tibial pulse bilateral, Lungs: CTA bilateral, no rhonchi, no rales , no accessory muscle use Abdominal: soft, nontender to palpation, no guarding, no appreciable organomegaly Ext: no gross muscle atrophy, no edema, no contractures Neuro: CN II-XI grossly intact, no focal neuro deficits Psych: Alert, oriented, appropriate affect Assessment and plan of care: Sick sinus syndrome with atrial fibrillation and severe bradycardia Junctional rhythm with underlying A. fib -Continuous Telemetry monitoring -Cardiology recommendations appreciated likely permanent pacemaker on Sunday -Echocardiogram with EF 50-55%, moderate tricuspid regurgitation, and moderate pulmonary hypertension with RVSP 53.86. He also was found have a severely dilated left atrium. -Hold Xarelto-patient is not on any rate controlling medications - hold cymbatla as it can increase BP Hypertensive urgency, blood pressures improved -Continue daily medication regimen with amlodipine which has been increased to 10 mg daily. -Continue to monitor vital signs closely. Dyslipidemia -Continue with Lopid -Lipid profile unremarkable with total cholesterol 167, triglycerides of 1:15, LDL of 102.9, and HDL of 41.10. Neuropathy -Continue outpatient workup DVT prophylaxis: Lovenox Discussed with: Patient, patient's , and RN Anticipated discharge date: Clinical course to determine Anticipated discharge place: home A total of 40 minutes was spent on the care of this complex patient more than 50% of the time was spent in counseling and care coordination. Objective - Vital Signs Vital signs: Vital Signs Temp 97.7 F 07/11/21 09:46 Pulse 70 07/11/21 10:31 Resp 17 07/11/21 10:31 BP 162/81 07/11/21 10:31 Pulse Ox 96 07/11/21 10:31 Intake & Output 07/10/21 07/11/21 07/11/21 18:59 06:59 18:59 Intake Total 1676 240 225 Balance 1676 240 225 Weight 86.7 kg Intake: IV 225 Oral 1676 240 Other: # Voids 3 1 - Labs CBC & Chem 7: 07/09/21 09:14 07/09/21 09:14 <Pam Couch - Last Filed: 07/11/21 14:15> Subjective Nilo Mendez NP rendered care for this patient independently, reviewed the findings and plan as documented in the note above. I did not physically speak with or examine the patient on this date. Objective - Vital Signs Vital signs: Vital Signs Temp 97.7 F 07/11/21 09:46 Pulse 70 07/11/21 12:31 Resp 17 07/11/21 12:31 BP 159/85 07/11/21 12:31 Pulse Ox 98 07/11/21 12:31 Intake & Output 07/10/21 07/11/21 07/11/21 18:59 06:59 18:59 Intake Total 1676 240 225 Balance 1676 240 225 Weight 86.7 kg Intake: IV 225 Oral 1676 240 Other: # Voids 3 1 - Labs CBC & Chem 7: 07/09/21 09:14 07/09/21 09:14
[2021-07-11 19:39] VITALS: RESP 18
[2021-07-11] MEDS ORDERED: hydrALAZINE HCL 20 MG/ML 1 ML VIAL IVP STA (20:22)
[2021-07-11] MEDS ORDERED: hydrALAZINE HCL 10 MG TAB PO SCH (22:00)
[2021-07-12 04:34] VITALS: PULSE 70
--- NOTE | 2021-07-12 08:13 | XR ---
EXAMINATION TYPE: XR chest 2V DATE OF EXAM: 07/12/2021 COMPARISON: 07/08/2021 TECHNIQUE: PA and lateral views submitted. HISTORY: Lead placement check FINDINGS: The lungs are clear and there is no pneumothorax, pleural effusion, or focal pneumonia. Heart is en larged. Postoperative change. Arthropathy of the shoulders. Single lead pacemaker seen with the lead overlying the right ventricle. Pleural-based thickening bilaterally. Coarsened interstitium stable. H ypertrophic and degenerative changes of the spine. IMPRESSION: 1. Cardiomegaly correlate for COPD and chronic interstitial lung disease. 2. Cardiac lead overlies the right ventricle with no sizable pneumothorax..
[2021-07-12] MEDS: CHOLECALCIFEROL 25 MCG (1000 IU) TABLET PO SCH (08:37)
[2021-07-12] MEDS: amLODIPine 10 MG TAB PO SCH (08:38)
[2021-07-12 08:43] LABS: HCT 41.3 % (39.0-53.0); HGB 14.6 gm/dL (13.0-17.5); MCH 33.1 pg (25.0-35.0); MCHC 35.5 g/dL (31.0-37.0); MCV 93.3 fL (80.0-100.0); Mean Platelet Volume 9.2; Platelet Count 139 k/uL (150-450); RBC 4.43 m/uL (4.30-5.90); RDW 13.7 % (11.5-15.5); WBC 6.8 k/uL (3.8-10.6)
[2021-07-12 08:54] LABS: Calcium 9.3 mg/dL (8.4-10.2); Magnesium 1.8 mg/dL (1.6-2.3); Potassium 3.8 mmol/L (3.5-5.1)
[2021-07-12] MEDS ORDERED: hydrALAZINE HCL 10 MG TAB PO SCH (09:00)
--- NOTE | 2021-07-12 11:16 | CDI ---
Documentation Clarification Form Date: 07/12/2021 11:05:26 AM From: Brea Thurston CCS, CCDS Admit Date: 07/08/2021 05:58:00 PM Patient Name: Rell Salazar Visit Number: [id number] Discharge Date: ATTENTION: The Clinical Documentation Specialists (CDI) and [facility] Coding Staff appreciate your assistance in clarifying documentation. Please respond to the clarification below the line at the bottom and electronically sign. The CDI & [facility] Coding staff will review the response and follow-up if needed. Please note: Queries are made part of the Legal Health Record. If you have any questions, please contact the author of this message via ITS. Dr. Brandon Chavez: Atrial Fibrillation is documented is documented in the 07/08 ED Note per the EKG: Atrial fibrillation with slow ventricular response, ventricular rate 31, QTc 387, QRS duration 104. Atrial Fibrillation is also documented in the 07/08 History & Physical. Per the 07/09 Cardiology Consult: Patient does have a past history of Atrial Fibrillation and has been on Eliquis. Additional clarification regarding the type of atrial fibrillation is requested. History/Risk Factors per the 07/08 H/P: Hypertension, Neuropathy. (Per the H/P: the patient has been on Xarelto for Atrial Fibrillation). Clinical Indicators per the 07/08 ED Note: Presented to the ED with high blood pressure. Was seen in Neurologist office for increased weakness and decreased coordination recently. Went to an Urgent Care Facility today, advised to go to ED for high BP. Admitted with Symptomatic Bradycardia with underlying Atrial Fibrillation and Accelerated Hypertension. 07/08 EKG #1: R 31 Atrial Fibrillation with slow ventricular response. 07/08 EKG #2: R 28 Atrial Fibrillation with slow ventricular response. Treatment 07/08: po Apresoline 25 mg x1, Nitro sl, po Eliquis, po Norvasc. 07/09: Lovenox 80 mg q12H, po Norvasc 5 mg x1, IV Cefazolin 50 mls @ 100 mls/hr/PRN (pre-op 09/10 Single Chamber Pacemaker Insertion Please clarify the type of atrial fibrillation, if known: [ ] Chronic [ ] Permanent [ ] Paroxysmal [ ] Persistent [ ] Other, please specify [ ] Unable to determine (Template Last Revised: December 2020) 07/13/2021: Query response documented in 07/12 Cardiology Progress Note: Paroxysmal Atrial Fibrillation. (CDI: CHERYL) CHARMAINE
[2021-07-12 11:44] VITALS: BP 154/84; TEMP 97.6
[2021-07-12] MEDS: SODIUM CHLORIDE 0.9% 1,000 ML IV SCH (12:24)
--- NOTE | 2021-07-12 13:12 | P.PN ---
Subjective Progress Note Date: 07/12/21 HISTORY OF PRESENT ILLNESS: Patient examined this morning at the bedside. He is status post single-chamber pacemaker. Device was interrogated this morning by the company rep. Chest xray completed with no evidence of pneumothorax. Vital signs are stable. Patient is hoping to be discharged home today. PHYSICAL EXAM: VITAL SIGNS: Reviewed. GENERAL: Well-developed in no acute distress. NECK: Supple. No JVD or thyromegaly LUNGS: Respirations even and unlabored. Lungs essentially clear to auscultation bilaterally. HEART: Regular rate and rhythm. S1 and S2 heard. EXTREMITIES: Normal range of motion. No clubbing or cyanosis. Peripheral pulses intact. No lower extremity edema ASSESSMENT: Sick sinus syndrome with bradycardia, status post pacemaker Paroxysmal atrial fibrillation Hypertension Hyperlipidemia PLAN: Continue current cardiac medications Patient may resume his Eliquis tonight Patient is stable for discharge home today from a cardiac standpoint Nurse practitioner note has been reviewed by physician. Signing provider agrees with the documented findings, assessment, and plan of care. Objective - Vital Signs Vital signs: Vital Signs Temp 97.6 F 07/12/21 08:00 Pulse 70 07/12/21 08:00 Resp 18 07/12/21 08:00 BP 154/84 07/12/21 08:00 Pulse Ox 99 07/12/21 08:00 Intake & Output 07/11/21 07/12/21 07/12/21 18:59 06:59 18:59 Intake Total 465 720 Balance 465 720 Weight 89.9 kg Intake: IV 225 Oral 240 720 Other: # Voids 2 1 2 - Labs CBC & Chem 7: 07/12/21 07:38 07/12/21 07:38 Labs: Abnormal Lab Results - Last 24 Hours (Table) 07/12/21 07/12/21 Range/Units 07:38 07:38 Plt Count 139 L (150-450) k/uL BUN 21 H (9-20) mg/dL Glucose 112 H (74-99) mg/dL
--- NOTE | 2021-07-12 13:33 | P.DS ---
<Nilo Mendez - Last Filed: 07/12/21 13:28> Providers Expected date of discharge: 07/12/21 Hospital Course: Discharge Diagnosis: Sick sinus syndrome with atrial fibrillation and severe bradycardia Junctional rhythm with underlying A. fib Hypertensive urgency, blood pressures improved Dyslipidemia Neuropathy Hospital Course: Patient is a pleasant 85-year-old male with a past medical history including hypertension and neuropathy. He presented to the emergency department on 07/08/21 with a chief complaint of high blood pressure. Upon arrival to the emergency department patient was noted to have a hypertensive urgency with blood pressure of 205/80 and significantly bradycardic with heart rate in the 30s. EKG was completed revealing atrial fibrillation with a slow ventricular response of 31 bpm. Patient was admitted under our services with consultation to cardiology. Patient was given dose of hydralazine and started on amlodipine with blood pressure stabilizing. Troponins trended 3 all negative at < 0.012. Lipid profile unremarkable. TSH normal findings at 1.470. Echocardiogram completed showing a normal EF of 50-55% with a severely dilated left atrium moderate mitral and tricuspid regurgitation, and moderate pulmonary hypertension. Patient underwent pacemaker placement on 07/11/21. Patient medically stable for discharge home and cleared from cardiac perspective. Patient being sent with prescriptions for hydralazine and amlodipine. Patient being discharged home in good follow-up with PCP and cardiology as directed. Physical Examination: Patient seen and examined at bedside this morning. Patient is postoperative day 1 from pacemaker placement. Dressing remains clean dry and intact to left anterior chest. Left arm remains in sling. Patient denies having any complaints at this time including pain at pacemaker insertion site, headache, lightheadedness, dizziness, chest pain, palpitations, shortness of breath, or experiencing any numbness/tingling/weakness in his extremities. Morning labs reviewed revealing mild thrombocytopenia with platelet count of 139, improving with BUN of 21, creatinine 1.18, and GFR 56. Patient medically stable for discharge home at this time General: non toxic, no distress, appears at stated age Derm: warm, dry Head: atraumatic, normocephalic, symmetric Eyes: EOMI, no lid lag, anicteric sclera Mouth: no lip lesion, mucus membranes moist Cardiovascular: S1S2 reg, no murmur, positive posterior tibial pulse bilateral, Lungs: CTA bilateral, no rhonchi, no rales , no accessory muscle use Abdominal: soft, nontender to palpation, no guarding, no appreciable organomegaly Ext: no gross muscle atrophy, no edema, no contractures Neuro: CN II-XI grossly intact, no focal neuro deficits Psych: Alert, oriented, appropriate affect A total of 45 minutes of time were spent preparing this complex discharge summary. Assessment: I reviewed the documentation as provided by the JAMEL above, who is the original author of this note. I agree with the documented assessment and plan, with the following changes: None Patient Condition at Discharge: Stable Plan - Discharge Summary New Discharge Prescriptions: New hydrALAZINE HCL [Apresoline] 15 mg PO TID 30 Days #135 tab amLODIPine [Norvasc] 10 mg PO DAILY 30 Days #30 tab Continue gemfibroziL [Lopid] 600 mg PO BID Cholecalciferol [Vitamin D3 (25 Mcg = 1000 Iu)] 25 mcg PO DAILY Apixaban [Eliquis] 5 mg PO BID DULoxetine HCL [Cymbalta] See Taper PO DIRECTED Discharge Medication List Apixaban [Eliquis] 5 mg PO BID 07/08/21 [History] Cholecalciferol [Vitamin D3 (25 Mcg = 1000 Iu)] 25 mcg PO DAILY 07/08/21 [History] DULoxetine HCL [Cymbalta] See Taper PO DIRECTED 07/08/21 [History] gemfibroziL [Lopid] 600 mg PO BID 07/08/21 [History] amLODIPine [Norvasc] 10 mg PO DAILY 30 Days #30 tab 07/12/21 [Rx] hydrALAZINE HCL [Apresoline] 15 mg PO TID 30 Days #135 tab 07/12/21 [Rx] Follow up Appointment(s)/Referral(s): Jessy Beavers MD [STAFF PHYSICIAN] - 1 Week (Dr's office will call you with your appointment date and time) Lizabeth Herrera MD [Primary Care Provider] - 07/19/21 2:20 pm (with Ena Melo NP) Patient Instructions/Handouts: Pacemaker (DC) Activity/Diet/Wound Care/Special Instructions: Activity: As tolerated. Take breaks as needed. Diet: Heart healthy and carb consistent diet. Avoid salts, or foods with hidden salts such as canned or boxed foods and frozen dinners. Extra salt makes your heart work harder and traps the fluid in your body for longer. Special Instructions: Take all of your medications as directed and remember to keep all of your doctor's appointments and follow-up as needed. You may resume your Eliquis this evening. Follow instructions for post-operative care status post pacemaker placement. Monitor your blood pressure at the same time each day and document in a journal/log to bring with you to your next doctor's appointment. This is important as adjustments may need to be made to your medication regimen. Thank you for allowing us to participate in your care, it was truly a pleasure having you for our patient!!! Discharge Disposition: HOME SELF-CARE <Julianne Spring - Last Filed: 07/12/21 18:42> Providers Date of admission: 07/08/21 17:58 Attending physician: Julianne Spring MD Consults: 07/08/21 17:41 Consult Physician Routine Consulting Provider: [facility] Consult Reason/Comments: bradycardia, afib Do you want consulting provider notified?: Yes Primary care physician: Lizabeth Herrera
[2021-07-12] MEDS ORDERED: APIXABAN 5 MG TAB PO SCH (21:00)
== END 2021-07-12 14:37 | disposition home or self-care (01) | DRG 243 ==
LOC: EC 14:18 → 3SCARD 17:58
PROVIDERS: ADMIT Internal Medicine; ATTEND Internal Medicine
PROC: 02HL3MZ Insertion of Cardiac Lead into Left Ventricle, Percutaneous Approach (ICD-10-PCS; 2021-07-11)
PROC: 02H63MZ Insertion of Cardiac Lead into Right Atrium, Percutaneous Approach (ICD-10-PCS; 2021-07-11)
PROC: 0JH604Z Insertion of Pacemaker, Single Chamber into Chest Subcutaneous Tissue and Fascia, Open Approach (ICD-10-PCS; principal; 2021-07-11 08:30)
DX: I49.5 Sick sinus syndrome (principal); N17.9 Acute kidney failure, unspecified; I16.0 Hypertensive urgency; I10 Essential (primary) hypertension; E78.5 Hyperlipidemia, unspecified; G62.9 Polyneuropathy, unspecified; I08.1 Rheumatic disorders of both mitral and tricuspid valves; I27.20 Pulmonary hypertension, unspecified; I48.0 Paroxysmal atrial fibrillation; Z20.822 Contact with and (suspected) exposure to COVID-19; Z79.01 Long term (current) use of anticoagulants; Z79.899 Other long term (current) drug therapy; Z95.1 Presence of aortocoronary bypass graft; Z96.653 Presence of artificial knee joint, bilateral
CPT/HCPCS: 33207; 36415; 71046; 80048; 80053; 80061; 83735; 84443; 84484; 85025; 85027; 85610; 85730; 87635; 93005; 93306; 99284

== ENCOUNTER 2021-07-20 16:35 | Emergency (ER) | payer MEDICARE ==
[2021-07-20 17:06] VITALS: TEMP 97.8
--- NOTE | 2021-07-20 18:28 | ED ---
General Adult HPI - General Chief complaint: Recheck/Abnormal Lab/Rx Stated complaint: Dehydration, came from outpt ct- unable to do ct Time Seen by Provider: 07/20/21 18:13 Source: patient, RN notes reviewed, old records reviewed Mode of arrival: wheelchair Limitations: no limitations - History of Present Illness Initial comments: 85-year-old male presenting for outpatient CT. CT with and without contrast was ordered for this patient due to some unsteadiness over the past one month. This was ordered by his primary nurse practitioner. Patient has no complaints time my evaluation. He had laboratory studies performed prior to imaging and there was note that he had a elevation in his BUN and creatinine. He had recent pacemaker placed, without issue. - Related Data Home Medications Medication Instructions Recorded Confirmed Apixaban [Eliquis] 5 mg PO BID 07/08/21 07/20/21 Cholecalciferol [Vitamin D3 (25 25 mcg PO DAILY 07/08/21 07/20/21 Mcg = 1000 Iu)] DULoxetine HCL [Cymbalta] 30 mg PO BID 07/08/21 07/20/21 gemfibroziL [Lopid] 600 mg PO BID 07/08/21 07/20/21 Previous Rx's Medication Instructions Recorded amLODIPine [Norvasc] 10 mg PO DAILY 30 Days #30 tab 07/12/21 hydrALAZINE HCL [Apresoline] 15 mg PO TID 30 Days #135 tab 07/12/21 Allergies Allergy/AdvReac Type Severity Reaction Status Date / Time No Known Allergies Allergy Verified 07/20/21 18:46 Review of Systems ROS Statement: Those systems with pertinent positive or pertinent negative responses have been documented in the HPI. ROS Other: All systems not noted in ROS Statement are negative. 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, bilateral knee replacements, hernia repairs Past Anesthesia/Blood Transfusion Reactions: No Reported Reaction Past Psychological History: No Psychological Hx Reported Smoking Status: Never smoker Past Alcohol Use History: Occasional Past Drug Use History: None Reported - Past Family History Mother Additional Family Medical History / Comment(s): no family hx of heart problems General Exam Limitations: no limitations General appearance: alert, in no apparent distress Head exam: Present: atraumatic, normocephalic Eye exam: Present: normal appearance, PERRL ENT exam: Present: mucous membranes moist Neck exam: Present: normal inspection. Absent: tenderness, meningismus Respiratory exam: Present: normal lung sounds bilaterally. Absent: respiratory distress, wheezes Cardiovascular Exam: Present: regular rate, normal rhythm GI/Abdominal exam: Present: soft. Absent: distended, tenderness, guarding Extremities exam: Present: normal inspection, normal capillary refill Neurological exam: Present: alert, oriented X3, CN II-XII intact. Absent: motor sensory deficit Psychiatric exam: Present: normal affect, normal mood Skin exam: Present: warm, dry, intact. Absent: cyanosis, diaphoretic Course Vital Signs 07/20/21 07/20/21 17:02 18:52 Temperature 97.8 F Pulse Rate 69 70 Respiratory 20 18 Rate Blood Pressure 170/87 166/91 O2 Sat by Pulse 100 99 Oximetry Medical Decision Making - Medical Decision Making 85-year-old male who was scheduled for an outpatient CT with and without contrast which is been ordered for some chronic issues. The creatinine and BUN was mildly elevated and the patient was sent to the emergency department. He did have a recent pacemaker placed. This is likely the source of his mildly elevated BUN and creatinine. 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 The patient is on cholesterol medication and anticoagulant. He has no acute complaints today. He is encouraged to maintain oral hydration and follow up with his primary care physician for repeat laboratory testing in one week. Disposition Clinical Impression: Acute kidney injury Disposition: HOME SELF-CARE Condition: Fair Instructions (If sedation given, give patient instructions): Acute Kidney Injury (DC) Is patient prescribed a controlled substance at d/c from ED?: No Referrals: Lizabeth Herrera MD [Primary Care Provider] - 1-2 days Time of Disposition: 19:31
--- NOTE | 2021-07-20 19:19 | CT ---
EXAMINATION TYPE: CT brain wo con DATE OF EXAM: 07/20/2021 COMPARISON: None HISTORY: Unsteady gait, CT DLP: 1068.4 mGycm Automated exposure control for dose reduction was used. There is cerebral atrophy. There is some enlargement of the ventricles. There is no mass effect nor m idline shift. There is no evidence of intracranial hemorrhage. Calvarium is intact. There is normal a eration of the mastoid sinuses. 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 There is no evidence of posterior fossa mass. IMPRESSION: Cerebral atrophy. Mild hydrocephalus. No acute intracranial abnormality.
[2021-07-20 19:37] VITALS: BP 150/84; PULSE 71; RESP 20
== END 2021-07-20 19:45 | disposition home or self-care (01) ==
LOC: EC 16:35
DX: N17.9 Acute kidney failure, unspecified (principal); I10 Essential (primary) hypertension; E78.5 Hyperlipidemia, unspecified; Z79.01 Long term (current) use of anticoagulants; Z95.1 Presence of aortocoronary bypass graft; Z96.653 Presence of artificial knee joint, bilateral
CPT/HCPCS: 70450; 99284

== ENCOUNTER → 2021-07-20 | Outpatient (CLI) | payer MEDICARE | END | disposition home or self-care (01) | LOC: RADCTMAIN 15:22 | PROVIDERS: ATTEND Family Medicine | DX: G81.94 Hemiplegia, unspecified affecting left nondominant side (principal); R90.89 Other abnormal findings on diagnostic imaging of central nervous system | CPT/HCPCS: 82565; 84520 ==

== ENCOUNTER → 2021-09-15 | Outpatient (CLI) | payer MEDICARE ==
--- NOTE | 2021-09-15 15:26 | CT ---
EXAMINATION TYPE: CT cervical spine wo con DATE OF EXAM: 09/15/2021 COMPARISON: NONE HISTORY: SPINAL STENOSIS, CERVICAL REGION. CT DLP: 372.4 mGycm. Automated Exposure Control for Dose Reduction was Utilized. TECHNIQUE: CT scan of the cervical spine is obtained without contrast, axial images are obtained, sa gittal and coronal reformatted images are also reviewed. FINDINGS: Cervical spine is visualized in its entirety from C1 through upper thoracic levels, demonst rates dextroconvex scoliosis centered in the upper thoracic spine. Prevertebral soft tissue appears within normal limits. The C1-C2 articulation is within normal limits on the coronal images. Vertebra l body heights are preserved. There is moderate to severe multilevel disc space narrowing greatest at C5-C6 and C6-C7 levels where there is advanced anterior spurring. Axial images at C2-C3 level show uncovertebral facet degenerative changes causing mild bilateral neur al foraminal narrowing. There is left paracentral spur disc complex mildly efface the anterior thecal sac. Axial images at C3-C4 level show uncovertebral facet degenerative changes and posterior spur disc com plex, there is effacement of the anterior thecal sac and severe left along with moderate right-sided neural foraminal narrowing. Axial images at C4-C5 level shows uncovertebral facet degenerative changes causing moderate left grea ter than right bilateral neural foraminal narrowing. Axial images at C5-C6 level show posterior spur disc complex along with marginal spurring, there is e ffacement of the anterior thecal sac, there is moderate to advanced right and advanced left-sided chalino ral foraminal narrowing. Axial images at C6-C7 level showed broad based right paracentral spur disc complex effacing anterior thecal sac, there is mild to moderate right and mild left-sided neural foraminal narrowing. Axial images at C7-T1 level appear within normal limits. Thyroid gland is normal in size. Visualized lung apices show no pneumothorax. IMPRESSION: Scoliotic curvature with multilevel degenerative changes greatest at C5-C6 and C6-C7 leve ls as detailed above.
== END | disposition home or self-care (01) ==
LOC: RADCTMAIN 14:53
PROVIDERS: ATTEND Psychiatry & Neurology Neurology
DX: M41.83 Other forms of scoliosis, cervicothoracic region (principal); M47.812 Spondylosis without myelopathy or radiculopathy, cervical region; M99.71 Connective tissue and disc stenosis of intervertebral foramina of cervical region
CPT/HCPCS: 72125

== ENCOUNTER → 2022-03-06 | Outpatient (CLI) | payer MEDICARE ==
--- NOTE | 2022-03-06 16:28 | XR ---
MR spine with flexion and extension HISTORY: Stenosis, low back pain 7 views of the lumbar spine, no comparisons Anterolisthesis grade 1 L3-4. There is dense sclerosis in the posterior elements consistent with face t arthropathy. There is multilevel spondylosis and loss of disc height at intervertebral levels. No c hange in alignment on flexion and extension views. Mild anterior wedging at the L1. Lumbar vertebral bodies show preserved height. Bone mineralization may be slightly reduced. No evident spondylolysis o n oblique views. IMPRESSION: Degenerative disc disease, facet arthropathy, spondylolisthesis and additional findings alexis lizarraga.
== END | disposition home or self-care (01) ==
LOC: RADXRMAIN 14:10
PROVIDERS: ATTEND Neurological Surgery
DX: M51.36 Other intervertebral disc degeneration, lumbar region (principal); M47.816 Spondylosis without myelopathy or radiculopathy, lumbar region; M43.16 Spondylolisthesis, lumbar region
CPT/HCPCS: 72114

== ENCOUNTER → 2022-03-17 | Outpatient (CLI) | payer MEDICARE ==
--- NOTE | 2022-03-17 13:01 | CT ---
EXAMINATION TYPE: CT lumbar spine wo con CT DLP: 1527.5 mGycm, Automated exposure control for dose reduction was used. DATE OF EXAM: 03/17/2022 12:49 PM COMPARISON: 01/19/2010. CLINICAL INDICATION:Male, 86 years old with history of M48.062 stenosis, Low back pain and bilateral feet numbness. TECHNIQUE: Multiple axial images were obtained from the midportion of T11 through the sacroiliac gladys nts. Soft tissue and bone windows in coronal and sagittal planes were obtained and reviewed. 3-D ref ormats of the bones were created on a separate workstation and submitted for review. FINDINGS: Alignment: There are 5 lumbar type vertebral bodies with grade 1 and 2 listhesis of L3 on L4 and L4 a nd L5. No spondylolysis identified. Bone: No evidence of fracture is identified. Facet joint arthropathy throughout the lower lumbar spi ne. The spinous processes demonstrate pseudoarticulation. Discs: T12-L1: No significant spinal canal or neural foraminal stenosis is identified. L1-L2: Facet joint arthropathy, osteophytes and disc bulging result in mild spinal canal stenosis and mild bilateral neural foraminal stenosis. L2-L3: Facet joint arthropathy, osteophytes and disc bulging result in moderate to severe spinal roberth l stenosis and moderate to severe bilateral neural foraminal stenosis. L3-L4: Facet joint arthropathy, osteophytes and disc bulging result in moderate to severe spinal roberth l stenosis and mild to moderate bilateral neural foraminal stenosis. L4-L5: Facet joint arthropathy, osteophytes and disc bulging result in mild spinal canal stenosis an d mild bilateral neural foraminal stenosis. L5-S1: Facet joint arthropathy, osteophytes and disc bulging result in mild spinal canal stenosis and moderate to severe bilateral neural foraminal stenosis. Other: None IMPRESSION: 1. No evidence of fracture of the lumbar spine. 2. Moderate to severe multilevel disc degeneration changes as described above 3. Findings suggestive of Baastrup's disease.
== END | disposition home or self-care (01) ==
LOC: RADCTMAIN 12:23
PROVIDERS: ATTEND Neurological Surgery
DX: M51.26 Other intervertebral disc displacement, lumbar region (principal); M48.062 Spinal stenosis, lumbar region with neurogenic claudication
CPT/HCPCS: 72131

== ENCOUNTER → 2022-11-14 | Outpatient (CLI) | payer MEDICARE ==
[2022-11-14 09:06] VITALS: TEMP 97.6
[2022-11-14 10:04] VITALS: RESP 18
--- NOTE | 2022-11-14 10:40 | FL ---
EXAMINATION TYPE: FL guided lumbar puncture LP DATE OF EXAM: 11/14/2022 10:24 AM COMPARISON: CT lumbar spine 03/17/2022 CLINICAL INDICATION:Male, 86 years old with history of G91.2; FINDINGS: Informed consent was obtained including discussion of the risks and benefits. Timeout was taken per p rotocol. Real-time fluoroscopy was performed to localize the L5-S1 intervertebral space. The patient was prepped and draped. Under sterile technique with local anesthesia a 22-gauge spinal needle was in troduced into the arachnoid space with return of clear CSF. marketing technology coordinator provided radiotrace r for injection into the thecal sac. Please refer to suggest nuclear medicine cisternogram report for findings. The patient tolerated the procedure without incident. Total fluoroscopy time was 11 seconds Total fluoroscopic images 2. IMPRESSION: Successful lumbar puncture for cisternogram.
[2022-11-14 13:06] VITALS: PULSE 60
[2022-11-14 13:22] VITALS: BP 128/76
== END | disposition home or self-care (01) ==
LOC: RADPROMAIN 08:04
PROVIDERS: ATTEND Psychiatry & Neurology Neurology
DX: G91.2 (Idiopathic) normal pressure hydrocephalus (principal)
CPT/HCPCS: 62328

== ENCOUNTER 2022-12-28 07:01 | Day surgery (SDC) | payer MEDICARE ==
[2022-12-26 08:53] VITALS: BMI 27.8
[~2022-12-28 07:01] MED LIST: LACTATED RINGERS 1,000 ML IV SCH; LIDOCAINE 1% (10MG/ML) FOR IV START INTRADERMA PRN
[2022-12-28 07:33] VITALS: PULSE 60; TEMP 96.9
--- NOTE | 2022-12-28 08:02 | P.PCN ---
Date of Procedure: 12/28/22 Procedure(s) Performed: Preoperative diagnosis: Normal pressure hydrocephalus Post operative diagnoses: Normal pressure hydrocephalus Procedure= large-volume lumbar puncture Anesthesia= local infiltration with lidocaine 1% 3 mL only . Condition: stable Complication: none. Description of the procedure procedure risk and benefits discussed with the patient , consent signed. Patient and the procedure area placed in sitting position , back prepped with chlorhexidine 3 times been local infiltration of the skin and subcutaneous tissue with lidocaine 1% 3 mL for skin and subcu interstitial frustrations at L3-4 levels then 20-gauge Quincke-type needle advanced slowly at L3-4 interlaminar space there was positive cerebrospinal fluid which was clear, no heme, no paresthesia ,total of 40 ML of clear cerebrospinal fluid collected in 4 different tubes , then the needle removed and a Band-Aid applied and patient tolerated the procedure well without any complications. note= the patient had symptoms suggestive of normal pressure hydrocephalus and patient was evaluated by neurologist Dr. Alva and he recommended removal of large-volume cerebrospinal fluid, and the procedure done today without any sedation, patient will follow up with the Dr. Alva today after the procedure for reevaluation
[2022-12-28 08:04] VITALS: RESP 18
[2022-12-28 08:26] VITALS: BP 116/61
[2022-12-28 15:15] LABS: Glucose,CSF 64 mg/dL (40-70); Total Protein,CSF 72 mg/dL (12-60)
[2022-12-28 20:49] LABS: Appearance,CSF Clear; CSF Tube Number 4; Nucleated Cells, CSF 1 u/L (0-5); Red Blood Cell,CSF 0 u/L (0-10)
== END 2022-12-28 08:38 | disposition home or self-care (01) ==
LOC: ORPAIN 07:01
PROVIDERS: ATTEND Specialist
DX: G91.2 (Idiopathic) normal pressure hydrocephalus (principal)
CPT/HCPCS: 62270; 82945; 84157; 88108; 89050

== ENCOUNTER → 2023-05-16 | Outpatient (CLI) | payer MEDICARE ==
--- NOTE | 2023-05-16 14:20 | XR ---
EXAM TYPE: LUMBAR SPINE X RAY SERIES COMPARISON: 03/06/2022 HISTORY: Spinal fusion postop TECHNIQUE: 4 views are submitted. FINDINGS: Postsurgical changes seen at L3-L4 compatible with laminectomy with transpedicular screws which appea r well situated within their respective segments. There is a disc spacer with minimal anterior listhe sis L3-4. There is moderate degenerative change L2-S1 with facet arthropathy and foraminal encroachment L4-5 an d L5-S1. Diffuse osteopenia.. Vascular calcifications IMPRESSION: 1. Postoperative changes L3-L4 with grade 1 anterior listhesis. 2. Multilevel moderate to severe degenerative disc disease
== END | disposition home or self-care (01) ==
LOC: RADXRMAIN 13:50
PROVIDERS: ATTEND Family Medicine
DX: M51.36 Other intervertebral disc degeneration, lumbar region (principal); M43.16 Spondylolisthesis, lumbar region; Z98.1 Arthrodesis status
CPT/HCPCS: 72110

== ENCOUNTER → 2023-06-21 | Outpatient (CLI) | payer MEDICARE ==
--- NOTE | 2023-06-21 08:26 | CT ---
EXAMINATION TYPE: CT lumbar spine wo con DATE OF EXAM: 06/21/2023 COMPARISON: 03/17/2022 HISTORY: lower back pain CT DLP: 1286.4 mGycm CONTRAST: None TECHNIQUE: CT of the lumbar spine is performed on a spiral scan at 3 mm thick sections. Reconstructed images are performed in the coronal and sagittal planes. FINDINGS: Scoliosis is present. T12-L1: No focal disc herniation or significant disc bulge is evident. No spinal canal stenosis or neural foraminal stenosis is present. L1-L2: No focal disc herniation or significant disc bulge is evident. No spinal canal stenosis. Sev ere right and moderate to severe left foraminal stenosis present L2-L3: No focal disc herniation or significant disc bulge is evident. No spinal canal stenosis face t hypertrophy is present. There is moderate left and right foraminal narrowing L3-L4: Postsurgical changes with fixation rods and screws are present in the right L3-4. Laminectomy is evident. There is a minimal grade 1 spondylolisthesis of L3 anterior to L4. L4-L5: No focal disc herniation or significant disc bulge is evident. No spinal canal stenosis. Mod erate right and mild left foraminal stenosis is present. L5-S1: There is loss of disc height this level. Mild endplate spurring has anterior thecal sac compre ssion. No spinal canal stenosis is present. Severe right and left foraminal stenosis is present. IMPRESSION: 1. Postsurgical changes L3-4. 2. Grade 1 spondylolisthesis of L3 internal 4 is present. 3. Multilevel foraminal stenosis. Most severe levels include L5-S1 bilaterally, and L1-L2.
== END | disposition home or self-care (01) ==
LOC: RADCTMAIN 07:06
PROVIDERS: ATTEND Family Medicine
DX: M51.36 Other intervertebral disc degeneration, lumbar region (principal); M48.061 Spinal stenosis, lumbar region without neurogenic claudication; M43.16 Spondylolisthesis, lumbar region
CPT/HCPCS: 72131

== ENCOUNTER 2023-08-16 08:47 | Day surgery (SDC) | payer MEDICARE ==
[~2023-08-16 08:47] MED LIST changes: -LACTATED RINGERS 1,000 ML IV SCH; -LIDOCAINE 1% (10MG/ML) FOR IV START INTRADERMA PRN; +SODIUM CHLORIDE 0.9% 1,000 ML IV SCH
[2023-08-16] MEDS ORDERED: SODIUM CHLORIDE 0.9% 500 ML 500 ML IV ONE (08:53)
[2023-08-16 09:28] VITALS: BP 133/61; PULSE 80; RESP 18; TEMP 97.1
[2023-08-16 10:49] LABS: African American GFR (CKD) 29 (>60 ml/min/1.73 sqM); Anion Gap 13 mmol/L; Blood Urea Nitrogen 48 mg/dL (9-20); Calcium 8.7 mg/dL (8.4-10.2); Carbon Dioxide 24 mmol/L (22-30); Chloride 104 mmol/L (98-107); Glucose 196 mg/dL (74-99); Non-African American GFR(CKD) 25 (>60 ml/min/1.73 sqM); Potassium 4.6 mmol/L (3.5-5.1); Sodium 141 mmol/L (137-145)
[2023-08-16] MEDS ORDERED: IOPAMIDOL-370 100ML BTL IVP ONE (11:01)
--- NOTE | 2023-08-16 11:14 | P.EPPROC ---
- EP Procedure Note Electrophysiology Procedure Note: Procedure Left upper extremity venogram: 15 mL IV dye injected the left arm. Patent left subclavian vein Plan Proceed with upgrade to a biventricular pacemaker for management of heart failure and cardio myopathy with 90% RV pacing Discussed with patient
== END 2023-08-16 11:51 | disposition home or self-care (01) ==
LOC: CATHEP 08:47
PROVIDERS: ATTEND Internal Medicine Clinical Cardiac Electrophysiology
DX: I42.9 Cardiomyopathy, unspecified (principal); I48.91 Unspecified atrial fibrillation; I49.5 Sick sinus syndrome; E78.5 Hyperlipidemia, unspecified; F17.290 Nicotine dependence, other tobacco product, uncomplicated; Z79.01 Long term (current) use of anticoagulants; Z79.51 Long term (current) use of inhaled steroids; Z79.899 Other long term (current) drug therapy
CPT/HCPCS: 36005; 75820; 80048; Q9967

== ENCOUNTER 2023-09-06 12:07 | Day surgery (SDC) | payer MEDICARE ==
[~2023-09-06 12:07] MED LIST changes: +HYDROmorphone 0.5 MG/0.5 ML SYRINGE IVP PRN; +LACTATED RINGERS 1,000 ML IV SCH; +MIDAZOLAM 2 MG/2 ML VIAL IV PRN; -SODIUM CHLORIDE 0.9% 1,000 ML IV SCH; +ceFAZolin 1 GM in SODIUM CHLORIDE 0.9% IRRIG BTL 250 ML IRRIGATION PRN
[2023-09-06] MEDS ORDERED: SODIUM CHLORIDE 0.9% 1,000 ML IV ONE (12:35)
[2023-09-06 13:20] LABS: Basophils % (A) 1 %; Eosinophils # (A) 0.3 k/uL (0-0.7); Eosinophils % (A) 5 %; HCT 36.1 % (39.0-53.0); HGB 12.6 gm/dL (13.0-17.5); Lymphocytes # (A) 1.2 k/uL (1.0-4.8); Lymphocytes % (A) 20 %; MCH 32.9 pg (25.0-35.0); MCHC 34.8 g/dL (31.0-37.0); MCV 94.4 fL (80.0-100.0); Mean Platelet Volume 9.8; Monocytes # (A) 0.5 k/uL (0-1.0); Monocytes % (A) 7 %; Neutrophils # (A) 4.1 k/uL (1.3-7.7); Neutrophils % (A) 65 %; Platelet Count 130 k/uL (150-450); RBC 3.82 m/uL (4.30-5.90); RDW 13.2 % (11.5-15.5); WBC 6.3 k/uL (3.8-10.6)
[2023-09-06 13:42] LABS: ALT 22 U/L (4-49); AST 27 U/L (17-59); African American GFR (CKD) 38 (>60 ml/min/1.73 sqM); Albumin 4.1 g/dL (3.5-5.0); Alkaline Phosphatase 93 U/L (38-126); Anion Gap 7 mmol/L; Blood Urea Nitrogen 47 mg/dL (9-20); Carbon Dioxide 24 mmol/L (22-30); Chloride 108 mmol/L (98-107); Glucose 127 mg/dL (74-99); Non-African American GFR(CKD) 33 (>60 ml/min/1.73 sqM); Potassium 4.5 mmol/L (3.5-5.1); Sodium 139 mmol/L (137-145); Total Bilirubin 1.1 mg/dL (0.2-1.3); Total Protein 7.1 g/dL (6.3-8.2)
[2023-09-06] MEDS ORDERED: MIDAZOLAM 2 MG/2 ML VIAL ONE (17:03)
[2023-09-06] MEDS ORDERED: PROPOFOL 10 MG/ML 20 ML VIAL IV ONE (17:03)
[2023-09-06] MEDS ORDERED: fentaNYL (PF) 50 MCG/ML 2 ML AMP ONE (17:03)
[2023-09-06] MEDS ORDERED: LIDOCAINE 1% INJ 10MG/ML (20 ML MDV) ONE ×2 (17:23→17:24)
[2023-09-06] MEDS ORDERED: SODIUM CHLORIDE 0.9% 250 ML IV ONE (17:40)
[2023-09-06] MEDS ORDERED: LIDOCAINE 1% INJ 10MG/ML (20 ML MDV) SQ ONE (17:52)
[2023-09-06] MEDS ORDERED: IOPAMIDOL-370 100ML BTL INJ ONE (18:22)
--- NOTE | 2023-09-06 19:42 | P.EPPROC ---
- EP Procedure Note Electrophysiology Procedure Note: Diagnosis Progressive heart failure symptoms, over the last 2 years progressive decline in LV systolic function from 61% to 50% over the last 2 years, after implantation of the single-chamber RV pacing lead/single-chamber pacemaker 100% RV paced Underlying atrial fibrillation, permanent Procedure Upgrade to a conduction system pacemaker (left bundle pacing) New subfascial pocket Details Patient was brought to the EP lab in a fasting state. Written informed consent was obtained prior to the procedure. Conscious sedation provided by PIPER HELPER. IV antibiotics administered. Local anesthesia administered. A 4 cm incision made in the pectoral area. The chronic single-chamber pacemaker was in the subcutaneous position almost subcuticular immediately beneath the left clavicle A completely new subfascial pocket made. Hemostasis assured venous accesses obtained Venous sheaths placed. Leads placed in the right heart. A deflected sheath was prepped. A coronary sinus decapolar catheter was placed within this sheath. The catheter along with the sheath was then passed into the right heart, the catheter was prolapsed across the tricuspid valve, into the right ventricle and then further into the right ventricular outflow tract across the pulmonic valve into the pulmonary artery. This sheath was slid over this decapolar catheter into the RVOT. Thereafter the catheter last sheath assembly was withdrawn from the RVOT along the septum to the mid septal area. The sheath was appropriately to to map the right ventricular aspect of the septum. The decapolar catheter was withdrawn, the sheath flushed again and the screw-in pacing lead placed within the sheath. Further detailed unipolar pace-mapping of the septum was performed and once the appropriate based morphology was obtained on lead V1, the lead was screwed into the septum. The lead was screwed in 4-5 returns at a time while monitoring the current of injury, the pacing impedance changes and the paced QRS morphology. The stimulus to peak of V6 QRS was measured at each step. Once a QR or rSR pattern of paced QRS in lead V1 was obtained, a left bundle signal was sought. Impedance was measured and thresholds were measured. An impedance drop of 100-200 ohms but above 550 ohms was targeted along with an unchanged vector of the current of injury signal. The final positioning was based on the QRS morphology in lead V1 and a short stimulus to peak of the V6 QRS of less than 90 ms. The sheath was withdrawn, s tability of the pacing lead deep in the septum was confirmed on MURRAY and PALESTINIAN views and the sheath was slipped and an adequate heel was provided for the lead. Unipolar and bipolar electrogram morphology obtained Atrial lead positioned in the right atrial appendage. Sensing, thresholds and impedances measured following positioning and securing the lead in the right atrial appendage Left bundle lead parameters: Right bundle branch block morphology, QRS width 127 ms. Stimulus to peak of V6 equals 69 ms R waves 10 mV, pacing impedance 840 ohms and threshold 0.5 V at point 5 ms Medtronic model #30 at 30, 69 cm in length Chronic right ventricular lead parameters Larkin 2088 TC, 50 cm in length implanted in 2020 R wave 7 mV, pacing impedance 440 ohms and pacing threshold 0.5 V at point 5 ms Explanted device single-chamber Larkin PM 1272 implanted in 2020 Device janitorial services supervisor: 1Ring Allure RF model # PM 3222 Atrial Port capped Biventricular pacemaker device connected to the leads and placed in the subfascial pocket Patient tolerated the procedure well without acute complications Pacemaker programming VVI 60 Left bundle pacing unipolar, sensing bipolar Bipolar RV pacing after 80 ms
[2023-09-06] MEDS ORDERED: ACETAMINOPHEN TAB 325 MG TAB PO PRN (19:45)
[2023-09-06] MEDS: SODIUM CHLORIDE 0.9% 1,000 ML IV SCH (19:52)
[2023-09-06] MEDS ORDERED: amLODIPine 10 MG TAB PO SCH (21:00)
[2023-09-07 02:53] VITALS: RESP 16
[2023-09-07] MEDS: SODIUM CHLORIDE 0.9% 1,000 ML IV SCH (04:27)
--- NOTE | 2023-09-07 08:21 | P.DS ---
Providers Attending physician: Brandon Chavez Primary care physician: [facility] Course: Patient is doing well Denies any chest discomfort dizziness and lightheadedness The pacemaker site is healed well there is no hematoma no swelling no soakage On examination his vitals are stable blood pressure 105/65 mmHg pulse rate 60 beats minute afebrile Impression progressive heart failure symptoms Progressive decline in LV systolic function from 61% to 50% over the last 2 years or so coinciding with implantation of a single-chamber pacemaker since the patient has permanent atrial fibrillation High RV pacing percentage Brought in yesterday for an upgrade to a biventricular pacemaker which was successfully implanted Conduction system pacing with left bundle pacing The EKG today shows conduction system pacing of the left bundle with rapid activation Plan Chest x-ray today Device interrogation Home later today Hold Eliquis and aspirin until Sunday. To start back on Sunday Follow-up in the device clinic in 1 week Plan - Discharge Summary Discharge Rx Participant: No New Discharge Prescriptions: No Action Losartan Potassium 100 mg PO QAM Furosemide [Lasix] 40 mg PO QAM Tobra-Dexamet 0.3-0.1% Eye Oin [Tobradex Ophth Oint] 1 applic RIGHT EYE DAILY Tamsulosin [Flomax] 0.4 mg PO DAILY DULoxetine HCL [Cymbalta] 30 mg PO QAM Cholecalciferol [Vitamin D3 (25 Mcg = 1000 Iu)] 50 mcg PO DAILY Aspirin 81 mg PO Q48H Atorvastatin [Lipitor] 20 mg PO QAM amLODIPine [Norvasc] 10 mg PO HS Apixaban [Eliquis] 2.5 mg PO BID Bromfenac Sodium [Prolensa Ophth Soln] 1 drop BOTH EYES DAILY Discharge Medication List Cholecalciferol [Vitamin D3 (25 Mcg = 1000 Iu)] 50 mcg PO DAILY 07/08/21 [History] Aspirin 81 mg PO Q48H 10/13/22 [History] Atorvastatin [Lipitor] 20 mg PO QAM 10/13/22 [History] Furosemide [Lasix] 40 mg PO QAM 10/13/22 [History] Losartan Potassium 100 mg PO QAM 10/13/22 [History] amLODIPine [Norvasc] 10 mg PO HS 10/13/22 [History] Apixaban [Eliquis] 2.5 mg PO BID 12/26/22 [History] Bromfenac Sodium [Prolensa Ophth Soln] 1 drop BOTH EYES DAILY 12/26/22 [History] Tobra-Dexamet 0.3-0.1% Eye Oin [Tobradex Ophth Oint] 1 applic RIGHT EYE DAILY [History] DULoxetine HCL [Cymbalta] 30 mg PO QAM 08/10/23 [History] Tamsulosin [Flomax] 0.4 mg PO DAILY 08/10/23 [History] Follow up Appointment(s)/Referral(s): Brandon Chavez MD [STAFF PHYSICIAN] - 09/13/23 4:00 pm (SundaySeptember AT 4 PM FOR DEVICE CLINIC APPOINNTMENT. HAS APPOINTMENT ON December AT 3:[address] CHAVEZ) Activity/Diet/Wound Care/Special Instructions: PATIENT EDUCATION MATERIAL Instructions following a heart rhythm device implant. 1. Keep dressing DRY for 5 DAYS. You may cover the area with Saran or Cling Wrap, prior to a shower. 2. The dressing will be removed in the Device Clinic at [facility]. Absorbable sutures were used to close the wound. 3. Avoid raising the left arm above the shoulder level. 4 week restriction 4. Avoid arm movements, like backscratching, rubbing the head, or pulling on a cord. 4 weeks restriction 5. Gentle range of motion movements of the shoulder, closest to the incision should be performed to avoid a frozen shoulder. (Pendulum exercises of the shoulder) 6. The opposite arm may be used freely. 7. Avoid driving for 7 days. 8. Avoid activities such as golfing, swimming, weed whacking, lifting more than 10 pounds weight, bowling, gymnastics and weight training/lifting. (6 weeks restriction) 9. Activities such as wood chopping with an axe, pull-ups in the gymnasium, power lifting, arc-welding, being close to home induction cooktops will always be a problem. 10. Arm sling is only a reminder not to raise the arm above the head. You do not need to keep the arm completely immobilized. Your free to move the arm and use it and for normal activities. In case of any problems, please call [facility] [place], @ [phone], Attention: Device Clinic Device clinic follow-up in 5 days Follow-up with primary supervisor correspondence section in 2-3 months Hold Eliquis for 2 days Hold aspirin for 3 days Discharge Disposition: HOME SELF-CARE
--- NOTE | 2023-09-07 08:58 | XR ---
EXAMINATION TYPE: XR chest 2V DATE OF EXAM: 09/07/2023 8:53 AM CLINICAL INDICATION:Male, 87 years old with history of Lead placement check; COMPARISON: Chest radiographs from 07/12/2021. TECHNIQUE: XR chest 2V Frontal and lateral views of the chest. FINDINGS: Lungs/Pleura: There is no evidence of pleural effusion, focal consolidation, or pneumothorax. Pulmonary vascularity: Unremarkable. Heart/mediastinum: Cardiomediastinal silhouette is enlarged and stable. Atherosclerotic calcificatio ns are seen in the aorta. Two lead cardiac conduction device overlying the left hemithorax with lead tips projecting over the the ventricles. Musculoskeletal: No acute osseous pathology. IMPRESSION: Cardiac conduction leads projecting over the the ventricles.
[2023-09-07] MEDS ORDERED: ATORVASTATIN 20 MG TAB PO SCH (09:00)
[2023-09-07] MEDS ORDERED: FUROSEMIDE 40 MG TAB PO SCH (09:00)
[2023-09-07] MEDS ORDERED: LOSARTAN 50 MG TAB PO SCH (09:00)
[2023-09-07 09:07] VITALS: BP 120/74; PULSE 60; TEMP 97.5
== END 2023-09-07 13:40 | disposition home or self-care (01) ==
LOC: CATHEP 12:07 → 6NMEDSUR 17:56 → CATHEP 09-07 13:40
PROVIDERS: ATTEND Internal Medicine Clinical Cardiac Electrophysiology
DX: I50.9 Heart failure, unspecified (principal); I48.21 Permanent atrial fibrillation; I45.10 Unspecified right bundle-branch block; Z79.899 Other long term (current) drug therapy
CPT/HCPCS: 33225; 33214; 80053; 85025; 71046; C1769 ×2; C1730; C1887; C1892; C1898; C2621; J2250; J0690 ×2; J2001; J3010; J2704; Q9967

== ENCOUNTER → 2024-09-05 | Outpatient (CLI) | payer MEDICARE ==
--- NOTE | 2024-09-05 15:47 | US ---
EXAMINATION TYPE: US kidneys/renal and bladder DATE OF EXAM: 09/05/2024 COMPARISON: NONE CLINICAL INDICATION: Male, 88 years old with history of N18.32 KIDNEY DISEASE; CKD 3 TECHNIQUE: Grayscale imaging of the bilateral kidneys and urinary bladder: FINDINGS: EXAM MEASUREMENTS: Right Kidney: 9.0 x 4.8 x 3.7 cm Left Kidney: 9.1 x 4.4 x 3.3 cm Prominent prostate 5.8 cm. Right Kidney: Anechoic area upper pole 4.2 x 2.6 x 4.8 cm. Left Kidney: anechoic upper pole 1.0 x .9 x 1.1 cm. Bladder: anechoic Bilateral Jets seen: yes IMPRESSION: 1. Bilateral renal cysts 2. Prostate appears prominent [facility], , 09/05/2024 3:44 PM
--- NOTE | 2024-09-05 15:55 | CT ---
EXAMINATION TYPE: CT brain wo con CT DLP: 1121 mGycm, Automated exposure control for dose reduction was used. DATE OF EXAM: 09/05/2024 3:42 PM COMPARISON: CT brain 07/20/2021 CLINICAL INDICATION:Male, 88 years old with history of R45.86 EMOTIONAL LABILITY, Mood changes x 2 ye ars TECHNIQUE: Brain: Multiple axial CT images of the brain were obtained without IV contrast. . Coronal and sagitta l reformats reviewed. FINDINGS: Brain: Extra-axial spaces: No abnormal extra-axial fluid collections. Ventricular system: Mild hydrocephalus redemonstrated. Cerebral parenchyma: Cerebral atrophy. No acute intraparenchymal hemorrhage or mass effect. The patel -white junction is well differentiated. Scattered hypoattenuating areas are seen within the periventr icular white matter. Bilateral basal ganglia prominent lacunar spaces versus remote lacunar infarcts . Stable left basal ganglia calcification. Cerebellum: Unremarkable. Mass effect: No evidence of midline shift. Intracranial vasculature: Atherosclerotic calcifications of the intracranial vessels. Soft tissues: Normal. Calvarium/osseous structures: No depressed skull fracture. Paranasal sinuses and mastoid air cells: Moderate mucosal thickening of the right maxillary sinus. Re maining paranasal sinuses are clear. Cerumen within the bilateral external auditory canals. Visualized orbits: Bilateral aphakia IMPRESSION: 1. No acute intracranial process. 2. Mild hydrocephalus redemonstrated which may relate to atrophy versus other etiologies such as nor mal pressure hydrocephalus. 3. Bilateral basal ganglia prominent perivascular spaces versus remote lacunar infarcts. 4. Nonspecific white matter changes likely related to chronic small vessel ischemic disease. [facility], , 09/05/2024 3:53 PM
== END | disposition home or self-care (01) ==
LOC: RADCTMAIN 14:33
PROVIDERS: ATTEND Family Medicine
DX: R45.86 Emotional lability (principal); N28.1 Cyst of kidney, acquired
CPT/HCPCS: 70450; 76770

== ENCOUNTER → 2024-09-05 | Outpatient (CLI) | payer MEDICARE | END | disposition home or self-care (01) | LOC: RADUSWWP 15:15 | PROVIDERS: ATTEND Family Medicine | DX: Z53.9 Procedure and treatment not carried out, unspecified reason (principal) ==

== ENCOUNTER → 2024-10-07 | Outpatient (CLI) | payer MEDICARE ==
--- NOTE | 2024-10-07 13:28 | XR ---
EXAMINATION TYPE: XR Hip Complete LT DATE OF EXAM: 10/07/2024 1:22 PM COMPARISON: None. CLINICAL INDICATION: Male, 88 years old with history of M25.552 LEFT HIP PAIN, TECHNIQUE: AP and frogleg views of the left hip are obtained. FINDINGS: There is no acute fracture/dislocation evident in the left hip. [id number] axial gladys nt space loss with inferior mild to moderate spurring. Femoral head shape is maintained. Left-sided small pelvic phleboliths are noted. IMPRESSION: As above. [facility], , 10/07/2024 1:26 PM
== END | disposition home or self-care (01) ==
LOC: RADXRMAIN 12:54
PROVIDERS: ATTEND Family Medicine
DX: I87.8 Other specified disorders of veins (principal)
CPT/HCPCS: 73502

== ENCOUNTER → 2024-10-30 | Outpatient (CLI) | payer MEDICARE ==
--- NOTE | 2024-10-31 08:50 | CT ---
EXAMINATION TYPE: CT hip LT wo con DATE OF EXAM: 10/30/2024 COMPARISON: None. CLINICAL INDICATION: Male, 88 years old with history of M25.552 PAIN IN LEFT HIP; PHH, Pain in left h ip. CT DLP: 562.6 mGycm Automated exposure control for dose reduction was used. FINDINGS: Examination is suboptimal as there was difficulty injecting contrast within joint space and attempted repositioning cause majority of contrast to go intramuscular in location. Joint access was obtained as there is some contrast and air within the joint space noted. There is moderate axial joint space loss and acetabular spurring along with moderate to severe head n rey collar spurring inferiorly. Femoral head shape is maintained. No significant subchondral cystic c hanges identified. Muscle bulk is fairly well preserved. No suspicious focal osseous lesion is presen t. Few benign-appearing subcentimeter left groin lymph nodes. No groin hernia is present. Incidental not e is made of enlarged prostate gland consistent with BPH and sigmoid colonic diverticula partially vi sualized. IMPRESSION: As above. 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 No acute findings observed. [facility], , 10/31/2024 8:48 AM
--- NOTE | 2024-10-31 08:54 | FL ---
EXAMINATION TYPE: FL arthrogram hip LT DATE OF EXAM: 10/30/2024 COMPARISON: NONE HISTORY: Left hip pain TECHNIQUE: Fluoroscopy assisted arthrogram. FINDINGS: Fluoroscopic guidance was provided during left hip arthrogram procedure performed by Dr. Cecille santiago. A total of approximately 150 seconds of fluoroscopic time was utilized during the procedure an d 2 spot images was acquired. Total dose area product (DAP) in uGy*m?, mGy*cm? (or similar): n/p. Procedure was explained to patient. Informed consent was obtained. Patient not candidate for MRI due to pacemaker. Overlying skin is cleansed with Betadine. Lidocaine anesthetic into the skin and deeper tissue. Under fluoroscopic guidance, approximately 10 cc of a combination 50% sterile saline and 50% Omnipaque 300 is attempted to be injected into the left hip joint space. There is some contrast inje ction but then difficulty in injecting more contrast. Attempts at injecting contrast gave resistance or showed contrast injection into vertical oriented structure presumed nearby muscle. After several a ttempts at repositioning the needle there was no further success in getting contrast injection into j oint space. At this point procedure was terminated. Needle is withdrawn. Patient tolerated procedure well without any immediate complication. Patient was taken to CT scan for imaging. This report is dictated separately. IMPRESSION: As Above. Degenerative changes are present. [facility], , 10/31/2024 8:51 AM
== END | disposition home or self-care (01) ==
LOC: RADFLMAIN 14:48
PROVIDERS: ATTEND Family Medicine
DX: M16.12 Unilateral primary osteoarthritis, left hip (principal); R59.0 Localized enlarged lymph nodes; K57.30 Diverticulosis of large intestine without perforation or abscess without bleeding
CPT/HCPCS: 27093; 73525; 73700; J2003